=== PATIENT | male | born 1995 | race Caucasian/White ===

== ENCOUNTER 2023-12-12 08:10 | Outpatient (REF) | payer OTHER, SELFPAY ==
--- NOTE | ~2023-12-12 | US_ITS ---
EXAMINATION: US ABDOMEN COMPLETE CLINICAL INFORMATION: Elevated LFTs. COMPARISON: None available. TECHNIQUE: Real-time imaging of the abdominal viscera. Limited visualization due to bowel gas. FINDINGS: PANCREAS: Poorly visualized. ABDOMINAL AORTA: Limited visualization. Imaged portions are within normal limits in caliber. INFERIOR VENA CAVA: Visualized portions are normal. LIVER: Hepatomegaly, 17.2 cm. Increased hepatic parenchymal heterogeneity and echogenicity could be associated with hepatocellular disease/hepatic steatosis and substantially limits visualization. Hypoechoic areas within the right hepatic lobe adjacent to the gallbladder may represent areas of focal sparing within a fatty liver. Correlation with liver function tests and clinical exam recommended to determine further management. GALLBLADDER: No gallbladder wall thickening. No gallstones. COMMON BILE DUCT: Normal in caliber measuring 0.3 cm in diameter. RIGHT KIDNEY: No hydronephrosis. No renal calculi. Limited visualization. The kidney measures 11.0 cm in maximum dimension. LEFT KIDNEY: No hydronephrosis. No renal calculi. Limited visualization. The kidney measures 10.7 cm in maximum dimension. SPLEEN: Normal. The spleen measures 11.6 cm in maximum dimension. FREE FLUID: None. US/US abdomen complete IMPRESSION: Hepatomegaly, 17.2 cm. Increased hepatic parenchymal heterogeneity and echogenicity could be associated with hepatocellular disease/hepatic steatosis and substantially limits visualization. Hypoechoic areas within the right hepatic lobe adjacent to the gallbladder may represent areas of focal sparing within a fatty liver. Correlation with liver function tests and clinical exam recommended to determine further management. This study was presented today December 19, 2023 for interpretation. Stat results provided at this time as requested by referring provider.
== END 2023-12-12 08:11 | disposition home or self-care (01) ==
LOC: HO.US 08:10
PROVIDERS: Visit Provider Internal Medicine Gastroenterology
DX: R79.89 Other specified abnormal findings of blood chemistry (principal)
CPT/HCPCS: 76700

== ENCOUNTER 2023-12-17 09:14 | Outpatient (REF) | payer OTHER, SELFPAY ==
[2023-12-17 12:10] LABS: Alanine Aminotransferase 166 U/L (0-40); Albumin Level 4.8 g/dL (3.5-5.0); Alkaline Phosphatase 78 U/L (39-117); Aspartate Amino Transferase 53 U/L (5-37); Bilirubin Direct 0.1 mg/dL (0.0-0.5); Bilirubin Total 0.5 mg/dL (0.0-1.0); Iron 142 mcg/dL (45-160); Percent Iron Saturation 46 % (15-50); Total Iron Binding Capacity 306 mcg/dL (228-428); Total Protein 7.5 g/dL (6.5-8.0); Unsaturated Iron Binding 164 ug/dL
[2023-12-17 12:20] LABS: HBS Num1 0.32 mIU/mL (0-7.99); HBc Num1 0.23 S/CO (0.00-0.79); HBsAGNum1 0.47 S/CO (0.00-0.99); Hepatitis B Core Antibody Nonreactive (Nonreactive); Hepatitis B Surface Antigen Negative (Negative); ~HepC Num1 0.21 S/CO (0.00-0.79); ~Hepatitis A Antibody IgM Nonreactive (Nonreactive); ~Hepatitis B Surface Antibody NONREACTIVE (Nonreactive); ~Hepatitis C Antibody Nonreactive (Nonreactive)
[2023-12-17 12:25] LABS: Ferritin 737 ng/mL (20-250)
[2023-12-20 06:33] LABS: Anti Nuclear Antibody Screen NEGATIVE (NEGATIVE)
[2023-12-20 14:09] LABS: Mitochondrial Antibodies NEGATIVE (NEGATIVE)
[2023-12-23 09:13] LABS: Smooth Muscle Antibody <20 U (<20)
== END 2023-12-17 09:15 | disposition home or self-care (01) ==
LOC: HO.WFDLDS 09:14
PROVIDERS: Visit Provider Internal Medicine Gastroenterology
DX: R79.89 Other specified abnormal findings of blood chemistry (principal)
CPT/HCPCS: 36415; 80076; 82728; 83540; 86015; 86038; 86381; 86704; 86706; 86709; 86803; 87340

== ENCOUNTER 2024-01-09 08:31 | Outpatient (REF) | payer OTHER, SELFPAY ==
[2024-01-09 10:20] LABS: Prothrombin Time 12.7 SEC (11.1-13.3)
[2024-01-09 10:40] LABS: Alanine Aminotransferase 104 U/L (0-40); Albumin Level 4.6 g/dL (3.5-5.0); Alkaline Phosphatase 79 U/L (39-117); Aspartate Amino Transferase 41 U/L (5-37); Bilirubin Direct 0.1 mg/dL (0.0-0.5); Bilirubin Total 0.3 mg/dL (0.0-1.0); Iron 106 mcg/dL (45-160); Percent Iron Saturation 36 % (15-50); Total Iron Binding Capacity 296 mcg/dL (228-428); Total Protein 7.2 g/dL (6.5-8.0); Unsaturated Iron Binding 190 ug/dL
[2024-01-09 10:54] LABS: Ferritin 574 ng/mL (20-250)
[2024-01-09 14:28] LABS: Estimated Average Glucose 94 mg/dL; Hemoglobin A1c % 4.9 % (<6.0)
[2024-01-16 11:29] LABS: Ceruloplasmin 26
[2024-01-16 11:31] LABS: Liver Fibrosis Interpretation no fibrosis; Liver Fibrosis Score 0.16; Liver Fibrosis Stage F0
[2024-01-16 11:32] LABS: Nec Inflam Act Grade A1-A2; Nec Inflam Act Interpretation minimal activity; Nec Inflam Act Score 0.47
[2024-01-16 11:33] LABS: FIB-Alpha-2-Macroglobulin 177
[2024-01-16 11:34] LABS: FIB-Apolipoprotein A1 110; FIB-Haptoglobin 131; FIB-Total Bilirubin 0.3
[2024-01-16 11:35] LABS: FIB-GGT 69
== END 2024-01-09 08:32 | disposition home or self-care (01) ==
LOC: HO.WFDLDS 08:31
PROVIDERS: Visit Provider Internal Medicine Gastroenterology
DX: R94.5 Abnormal results of liver function studies (principal); E83.19 Other disorders of iron metabolism
CPT/HCPCS: 36415; 80076; 81256; 81596; 82103; 82390; 82728; 83036; 83519; 83540; 85610

== ENCOUNTER 2024-02-11 16:07 | Outpatient (AMB) | payer OTHER, SELFPAY ==
--- NOTE | 2024-02-11 16:11 | MHC.PC.OV ---
Vital Signs 02/11/24 16:12 Height 6 ft Weight 201 lb BMI 27.3 BP 122/86 Blood Pressure Location Lt brachial Position Sitting Pulse 76 Pulse Source Pulse Oximeter Pulse Oximetry (%) 98 Oxygen Delivery Method Room Air Intake Visit Reasons: establish care [employer] Driver Required: No Accompanied by: Self / Same As Patient Allergies No Known Allergies Allergy (Verified 02/11/24 16:39) Medication List - Last Reconciled 02/11/24 by Rc Harris MD fluticasone propionate 50 mcg/actuation (Flonase Allergy Relief) 1 spray intranasal Q12H 30 days loratadine 10 mg PO DAILY PRN 30 days pseudoephedrine HCl 60 mg (2 x 30 mg) PO Q6H PRN 3 days Tobacco use date assessed: 02/11/24 Dental Screening Dental Screen Date: 02/11/24 Did you have a dental visit in the last 12 months?: No Did you have a dental problem in the last 6 months where you did not have access to dental care?: No Was dental information given to patient?: Patient has dentist HPI establish care HPI Details Patient comes in today to establish care - is a new patient to the practice States that the last time he had a primary care doctor was when 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 Nava over the past few months for evaluation and management of his elevated LFTs, which was first discovered when he went to a local urgent care center in November (2023) States that he was not feeling too good at the time and was experiencing increased heartburns after attending a pool republican with friends and admitted that he drank more alcohol that time than he normally does (thinks that he had about 6 drinks with 4 to 5 shots of alcohol at the time) His mother was then able to get him an appointment with Dr. Nava for GI consultation regarding his elevated liver enzymes He has since then been sent for extensive labs, including serologies and work ups for hemochromatosis, as well as abdominal ultrasound His abdominal sonogram revealed (+) hepatomegaly, with the liver measuring at 17.2 cm. There is also increased hepatic parenchymal heterogeneity and echogenicity noted consistent with hepatic steatosis or hepatocellular disease His hepatitis profile came back negative and his hemochromatosis DNA analysis revealed that patient is heterozygous for the C282Y and H63D pathogenic variant, which means that he has a very low risk of developing clinical hereditary hemochromatosis Patient states that overall, he feels well and has no significant medical or health issues He denies any headaches or dizziness Denies any chest pains, no SOB No nausea/vomiting, no abdominal pain No change in bowel habits noted He denies any acute urinary symptoms PFSH Medical History (Updated 02/12/24 @ 05:42 by Rc Harris MD) Occasional cigarette smoker Overweight (BMI 25.0-29.9) Compound heterozygous hemochromatosis type 1 Elevated LFTs Surgical History (Updated 02/12/24 @ 05:17 by Rc Harris MD) No pertinent past surgical history Family History Mother No problems noted. Father No problems noted. Social History Housing: House Alcohol intake: current Alcohol intake frequency: 0-2 drinks per day Patient Tobacco Use Status: Current someday Tobacco user e-Cigarette/Vaping Use: Never Used service: No Current occupational status: employed Current occupational exposures/hazards: Yes Cognitive needs: No Hearing needs: No Vision needs: No Questionnaire PHQ-9 Over the last 2 weeks, how often have you been bothered by any of the following problems? 1. Little interest or pleasure in doing things: not at all 2. Feeling down, depressed, or hopeless: not at all 3. Trouble falling or staying asleep, or sleeping too much: not at all 4. Feeling tired or having little energy: not at all 5. Poor appetite or overeating: not at all 6. Feeling bad about yourself - or that you are a failure or have let yourself or your family down: not at all 7. Trouble concentrating on things, such as reading the newspaper or watching television: not at all 8. Moving or speaking so slowly that other people could have noticed. Or the opposite - being so fidgety or restless that you have been moving around a lot more than usual: not at all 9. Thoughts that you would be better off or of hurting yourself in some way: not at all Total score: 0 Depression Screening Interpretation: Negative Depression Screening Done: Yes 61016 - PHQ-9 Billing: Yes Source: Developed by Drs. Maximo Sousa, Enedelia Mathias, Prince Gutierrez and colleagues, with an educational vanesa from [employer]. Thrive Questionnaire Date Thrive assessed: 02/11/24 I am a: Patient What is your living situation today?: I have a steady place to live Within the past 12 months, did the food you bought not last and you didn't have the money to get more?: Never true Within the past 12 months, did you worry whether your food would run out before you got money to buy more?: Never true Do you have trouble paying for medicines?: No Do you have trouble getting transportation to medical appointments?: No Do you have trouble paying your heating and electricity bill?: No Do you have trouble taking care of your child, family member or friend?: No Do you have trouble with day-to-day activities such as bathing, preparing meals, shopping, managing finances, etc.?: No Are you currently unemployed and looking for a job?: No Are you interested in more education?: No Please select the resources that you would like help with: None Currently or been in a relationship where the following occur: No concerns reported THRIVE Score: 0 AUDIT C Alcohol Use Questionnaire (AUDIT-C) 1. How often do you have a drink containing alcohol?: 2-4 times a month 2. How many drinks containing alcohol do you have on a typical day when you are drinking?: 3 or 4 3. How often do you have six or more drinks on one occasion?: Less than monthly Total Score: 4 Score Reviewed/Action Taken: Yes (patient has been counseled to cut back on his alcohol intake overall) MARNIE-7 AMB Questionnaire MARNIE-7 Date MARNIE - 7 assessed: 02/11/24 Feeling nervous, anxious, or on edge: 0 = Not at all Not being able to stop or control worryin = Not at all Worrying too much about different things: 0 = Not at all Trouble relaxin = Not at all Being so restless that it is hard to sit still: 0 = Not at all Becoming easily annoyed or irritable: 0 = Not at all Feeling afraid as if something awful might happen: 0 = Not at all Total MARNIE-7 score (0-4 normal; 5-9 mild; 10-14 moderate; 15-21 severe): 0 Source: Developed by Drs. Maximo Sousa, Enedelia Mathias, Prince Gutierrez and colleagues, with an educational vanesa from [employer]. Review of Systems Const Denies chills, Denies fatigue, Denies fever(s), Denies headache(s), Denies malaise and Denies weakness Eyes Denies blurry vision, Denies change in vision, Denies irritation and Denies itchy eyes ENT Denies dysphagia, Denies dizziness, Denies otalgia, Denies headache(s), Denies nasal congestion, Denies neck pain, Denies odynophagia and Denies sore throat Card Denies chest pain, Denies rapid heart rate, Denies irregular heart rhythm, Denies palpitations and Denies dyspnea Resp Denies chest congestion, Denies cough, Denies dyspnea and Denies wheezing GI Denies abdominal pain, Denies bloating, Denies constipation, Denies dysphagia, Denies heartburn, Denies diarrhea, Denies nausea, Denies odynophagia and Denies vomiting Denies hematuria, Denies difficulty urinating, Denies dysuria, Denies urinary frequency and Denies urinary urgency Musc Denies back pain, Denies arthralgias, Denies joint swelling, Denies muscle weakness and Denies neck pain Skin/Breast Denies change in pigmentation, Denies lesions, Denies rash and Denies unusual bruising Neuro Denies dizziness, Denies headache(s), Denies paresthesias and Denies weakness Endo Denies fatigue and Denies palpitations Aller/Immun Denies itchy eyes and Denies wheezing Physical exam (Primary Care) Vital Signs: Last Vital Signs Pulse 76 02/11/24 16:12 BP 122/86 02/11/24 16:12 Pulse Ox 98 02/11/24 16:12 Oxygen Delivery Method Room Air 02/11/24 16:12 BMI result Body Mass Index 27.3 Tobacco/Smoking Status: Tobacco use Status Tobacco use date assessed 02/11/24 02/11/24 16:14 Patient Tobacco Use Status Current someday Tobacco 02/11/24 16:14 e-Cigarette/Vaping Use Never Used 02/11/24 16:14 PHQ-9: PHQ-9 Score PHQ-9: Total score 0 02/11/24 16:54 Depression Screening Interpretation: Negative Thrive Assessment: Date of Thrive Assessment Date Thrive assessed 02/11/24 02/11/24 16:14 Currently or been in a relationship where the following occur: No concerns reported Const General: no acute distress, alert and awake Orientation/consciousness: patient oriented x3 HENMT Head: Yes normocephalic and Yes atraumatic Ears: external ears normal, TM's normal bilaterally and EAC's normal General nose exam: No nasal discharge present Face and sinus: Yes normal facial exam and Yes sinuses nontender Teeth and gingiva: dentition normal Throat: Yes posterior oropharynx normal and Yes tonsils normal (no TP congestion) Eyes Eyelids: Yes eyelids normal Conjunctivae: conjunctivae normal Pupils: Equal, round and reactive pupils present EOM: EOMs intact bilaterally Neck Neck: Yes no lymphadenopathy and Yes supple Thyroid: Thyroid normal Resp Auscultation: clear to auscultation bilaterally, no rales and no wheezes Cardio Rate: regular rate Rhythm: regular rhythm Heart sounds: no murmurs GI Palpation (GI): Soft to palpation, nontender and No hepatosplenomegaly present Auscultation: normal bowel sounds General: Yes no CVA tenderness Back/Spine/Pelvis Back: no CVA tenderness Thoracic/Lumbar Spine: thoracic and lumbar spine normal to inspection Skin Lesions: no lesions Rashes: no rashes Neuro General: patient oriented x3, moves all extremities, no focal motor deficits and CN's II-XI intact bilaterally Cranial nerves: Yes Equal, round and reactive pupils present Cognition (Neuro): normal cognition Gait exam (Neuro): Normal gait present Extrem General: Yes no clubbing, cyanosis or edema Assessment and Plan Assessment & Plan (1) Annual physical exam: Code(s): Z00.00 - Encounter for general adult medical examination without abnormal findings Plan: Check labs (2) Elevated LFTs: Code(s): R79.89 - Other specified abnormal findings of blood chemistry Plan: Patient is advised that this is likely due to a combination of multiple factors, including his weight and alcohol intake He has been advised to cut back on his overall alcohol intake and to avoid taking OTC Tylenol as much as possible Advised that losing some weight can also help and that at his height, losing 10 to 15 pounds should get him down to his ideal body weight His hepatitis panel done a couple of months ago came back negative Hepatomegaly was seen on his abdominal sonogram done in November 2023, with the liver measuring at 17.2 cm. There is also increased hepatic parenchymal heterogeneity and echogenicity noted consistent with hepatic steatosis or hepatocellular disease His hemochromatosis DNA analysis revealed that patient is heterozygous for the C282Y and H63D pathogenic variant, and his serum ferritin level was elevated at the time Will continue to monitor his LFTs and serum ferritin levels regularly (3) Compound heterozygous hemochromatosis type 1: Code(s): E83.110 - Hereditary hemochromatosis Plan: There is a common misconception that people who are compound heterozygous are just carriers A carrier is when an individual has inherited one single copy of the HFE mutation. If the result shows that the individual has inherited 2 different copies, then that person is not a carrier but has got type 1 genetic hemochromatosis. In this case, this individual is compound heterozygous Have advised patient that people with compound heterozygous hemochromatosis type 1, while they have a very low risk of developing clinical hereditary hemochromatosis, may still experience symptoms of iron overload, such as:?obesity, non-alcoholic fatty liver disease (NAFLD), excess alcohol consumption and end-stage cirrhosis However, people with this condition tend to accumulate iron more slowly than people with other types of genetic hemochromatosis Have advised patient that his first-degree relatives should also be tested and family screening should include parents, siblings, partner and children 18 years and older. All children will be carriers but are only at risk if their other parent is also affected or a carrier (4) Occasional cigarette smoker: Code(s): Z72.0 - Tobacco use Plan: Counseled patient on complete smoking cessation (5) Overweight (BMI 25.0-29.9): Code(s): E66.3 - Overweight Plan: Reinforced diet/exercise as tolerated/lose weight, especially in light of his elevated LFTs Plan Follow up in 6 months Orders: Orders Complete Blood Count Auto Diff 02/11/24 D64.9 - Anemia, unspecified, R79.89 - Other specified abnormal findings of blood chemistry Comprehensive [place]. Panel Fast 02/11/24 E78.00 - Pure hypercholesterolemia, unspecified, R79.89 - Other specified abnormal findings of blood chemistry Lipid Panel 02/11/24 E78.00 - Pure hypercholesterolemia, unspecified, R79.89 - Other specified abnormal findings of blood chemistry UA CC w/rflx Micro + Cult 02/11/24 R30.0 - Dysuria, R79.89 - Other specified abnormal findings of blood chemistry Vitamin D 25-OH Total 02/11/24 E55.9 - Vitamin D deficiency, unspecified, R79.89 - Other specified abnormal findings of blood chemistry Transferrin 02/11/24 E83.110 - Hereditary hemochromatosis TSH reflex Free T4 02/11/24 E78.00 - Pure hypercholesterolemia, unspecified, R79.89 - Other specified abnormal findings of blood chemistry Coding Level of Care Code New Pt Prev Care 18-39yr([id number] Diagnoses Annual physical exam Z00.00 Elevated LFTs R79.89 Compound heterozygous hemochromatosis type 1 E83.110 Occasional cigarette smoker Z72.0 Overweight (BMI 25.0-29.9) E66.3
[2024-02-11 16:12] VITALS: BP 122/86; PULSE 76; O2SAT 98; BMI 27.3
== END 2024-02-11 17:09 | disposition home or self-care (01) ==
PROVIDERS: Visit Provider Internal Medicine
DX: Z00.00 Encounter for general adult medical examination without abnormal findings (principal); R79.89 Other specified abnormal findings of blood chemistry; E83.110 Hereditary hemochromatosis; Z72.0 Tobacco use; E66.3 Overweight

== ENCOUNTER → 2024-02-11 16:07 | Outpatient (BNVA) | payer OTHER, SELFPAY | PROVIDERS: Visit Provider Internal Medicine | DX: Z00.00 Encounter for general adult medical examination without abnormal findings (principal); R79.89 Other specified abnormal findings of blood chemistry; E83.110 Hereditary hemochromatosis; E66.3 Overweight; Z68.27 Body mass index [BMI] 27.0-27.9, adult; Z72.0 Tobacco use | CPT/HCPCS: 96127 ==

== ENCOUNTER 2024-02-13 09:02 | Outpatient (REF) | payer OTHER, SELFPAY ==
[2024-02-13 11:12] LABS: MANUAL DIFF FLAG NO
[2024-02-13 11:19] LABS: Appearance Urine Clear; Color Urine Yellow; Glucose Urine UA Negative (Negative); Leukocyte Esterase Urine Negative (Negative); Nitrite Urine Negative (Negative); Urine Blood Negative (Negative); Urine Ketones Negative (Negative); Urine Protein Negative (Neg-Trace)
[2024-02-13 11:23] LABS: Basophils Percent Auto 0.7 % (0-2); Eosinophils Absolute Auto 0.1 X10*3/uL (0.0-0.4); Eosinophils Percent Auto 1.4 % (0-4); Hematocrit 46.5 % (42.0-52.0); Hemoglobin 15.2 g/dl (14.0-18.0); Imm Gran Abs Auto 0.02 X10*3/uL (0.00-0.03); Imm Gran Pct Auto 0.5 % (0.0-0.4); Lymphocytes Absolute Auto 1.5 X10*3/uL (1.2-4.9); Lymphocytes Percent Auto 34.3 % (20-40); Mean Corpuscular HGB Conc 32.7 g/dl (31.0-36.0); Mean Corpuscular Volume 82.6 fL (80.0-98.0); Mean Platelet Volume 10.4 fL (9.4-12.4); Monocytes Absolute Auto 0.4 X10*3/uL (0.1-1.2); Monocytes Percent Auto 9.7 % (2-11); Neutrophils Absolute Auto 2.3 x10*3/uL (2.0-8.3); Neutrophils Percent Auto 53.4 % (45-73); Platelet Count 296 X10*3/uL (160-400); Red Blood Count 5.63 X10*6/uL (4.60-5.80); Red Cell Distribution Width 12.5 % (11.0-16.0); White Blood Count 4.4 X10*3/uL (4.8-10.8)
[2024-02-13 12:03] LABS: Alanine Aminotransferase 90 U/L (0-40); Albumin Level 4.8 g/dL (3.5-5.0); Alkaline Phosphatase 62 U/L (39-117); Aspartate Amino Transferase 31 U/L (5-37); Bilirubin Direct 0.1 mg/dL (0.0-0.5); Bilirubin Total 0.5 mg/dL (0.0-1.0); Total Protein 7.5 g/dL (6.5-8.0)
[2024-02-13 12:14] LABS: Alanine Aminotransferase 92 U/L (0-40); Albumin Level 4.8 g/dL (3.5-5.0); Alkaline Phosphatase 63 U/L (39-117); Anion Gap 12 (12-20); Aspartate Amino Transferase 32 U/L (5-37); Bilirubin Total 0.5 mg/dL (0.0-1.0); Blood Urea Nitrogen 18 mg/dL (9-16); Calcium 9.8 mg/dL (8.4-10.2); Carbon Dioxide 27 mmol/L (22-29); Chloride 106 mmol/L (96-108); Cholesterol 233 mg/dL (<200); Estimated Glomerular Filt Rate > 60; Glucose Fasting 96 mg/dL (60-99); HDL Cholesterol 32 mg/dL (>40); LDL Cholesterol Calculated 180 mg/dL (<100); Potassium 4.4 mmol/L (3.3-5.1); Sodium 141 mmol/L (135-145); TSH reflex Free T4 0.83 uIU/mL (0.32-4.0); Total Protein 7.6 g/dL (6.5-8.0); Triglycerides 108 mg/dL (<150); Vitamin D 25-OH Total 54.7 ng/mL (>30)
[2024-02-14 09:43] LABS: Transferrin 288 mg/dL (188-341)
== END 2024-02-13 09:03 | disposition home or self-care (01) ==
LOC: HO.WFDLDS 09:02
PROVIDERS: Internal Medicine Gastroenterology; Visit Provider Internal Medicine
DX: R79.89 Other specified abnormal findings of blood chemistry (principal); E83.110 Hereditary hemochromatosis; D64.9 Anemia, unspecified; E78.00 Pure hypercholesterolemia, unspecified; R30.0 Dysuria
CPT/HCPCS: 36415; 80053; 80061; 80076; 81003; 82248; 82306; 84443; 84466; 85025

== ENCOUNTER 2024-04-09 09:02 | Outpatient (AMB) | payer OTHER, SELFPAY ==
--- NOTE | 2024-04-09 09:25 | AM.OFFWIN_ITS ---
Intake Vital Signs 04/09/24 09:33 Height 6 ft Weight 197 lb BMI 26.7 BP 120/60 Blood Pressure Location Lt brachial Position Sitting Respiration 16 Pulse 72 Pulse Source Pulse Oximeter Temp 98.2 F Temp Source Temporal Artery Scan Pulse Oximetry (%) 95 Oxygen Delivery Method Room Air Intake Visit Reasons: est/sore throat Intake Note: patient here c/o sore throat since Sunday and very painful to swallow Patient Tobacco Use Status: Current someday Tobacco user Allergies No Known Allergies Allergy (Verified 04/09/24 09:47) Medication List - Last Reconciled 04/09/24 by CHAY Vincent No Known Home Meds Do you need a note to return to daycare/school/sports/work: Yes HPI HPI Comments History of Present Illness Details History of Present Illness The patient is a 29-year-old male presenting with acute pharyngitis. The patient reports that the sore throat began gradually on Sunday and progressively worsened, becoming intensely painful during swallowing. He denies fever, chills, nausea, or vomiting, and maintains an appetite, although eating is difficult due to pain. Self-treatment efforts included DayQuil with honey and [id number] lozenges, which provided minimal relief. The patient noted a slight tinge of blood in the morning, possibly due to throat irritation. He reports history of cold sores since childhood and recently noticed a small ulcer under his tongue. The patient has a new girlfriend of four months but denies known herpes exposure. There is a history of occasional cigar smoking prior to a liver issue in November, after which he quit smoking. He admits to limited chewing tobacco use. The patient is particularly concerned about the sore throat due to the use of chewing tobacco and potential oral health risks. Physical Exam - Ears- Clear bilaterally. - ENT- Throat showed redness and cobbles toning, presence of vesicle underneath the tongue. - Cardiovascular- Normal heart sounds. - Lungs- Clear on auscultation. - Abdomen- No tenderness noted. Plan - Acute Pharyngitis: Prescribed Augmenti n for a 7-day course, advising the patient to take one tablet twice daily with food. The patient is advised to contact Dr. Harris if there is no improvement after five days. - Aphthous Ulcer: Reassurance provided. Recommended continuation of current symptomatic relief measures with the addition of ibuprofen, 800 mg, three times a day with food for pain management. - History of Herpes Labialis: Discussed that sore throats can be associated with herpes virus, but confirmatory testing has not been initiated. Advised to m onitor symptoms. - History of Chewing Tobacco Use: Discus sed risks associated, including potential oral cancer. Advised to abstain from tobacco use and to seek further evaluation with Dr. Harris if symptoms persist or worsen. Patient was informed and verbally consented to the use of an ambient scribe for clinic note documentation during this visit. Total time spent caring for the patient today was 30 minutes. This includes time spent before the visit reviewing the chart, time spent during the visit, and time spent after the visit on documentation [facility] Medical History (Updated 04/09/24 @ 12:07 by Conchita Mitchell, [facility]) Occasional cigarette smoker Overweight (BMI 25.0-29.9) Compound heterozygous hemochromatosis type 1 Elevated LFTs Surgical History (Updated 02/12/24 @ 05:17 by Rc Harris MD) No pertinent past surgical history Family History Mother No problems noted. Father No problems noted. Social History Housing: House Alcohol intake: current Alcohol intake frequency: 0-2 drinks per day Patient Tobacco Use Status: Current someday Tobacco user e-Cigarette/Vaping Use: Never Used service: No Current occupational status: employed Current occupational exposures/hazards: Yes Cognitive needs: No Hearing needs: No Vision needs: No Physical Exam Vital Signs: Last Vital Signs Temp 98.2 F 04/09/24 09:33 Pulse 72 04/09/24 09:33 Resp 16 04/09/24 09:33 BP 120/60 04/09/24 09:33 Pulse Ox 95 04/09/24 09:33 Oxygen Delivery Method Room Air 04/09/24 09:33 BMI result Body Mass Index 26.7 Results AMB Rapid Strep AMB Rapid Strep Negative Last Edit by Ana Serrato on 04/09/24 09:51 Results Reviewed Results Reviewed: Laboratory Last Values Strep Scn Rapid Clinic Negative 04/09/24 09:48 Assessment & Plan Assessment & Plan (1) Acute pharyngitis: Code(s): J02.9 - Acute pharyngitis, unspecified Qualifiers: Pharyngitis/tonsillitis etiology: unspecified etiology Qualified Code(s): J02.9 - Acute pharyngitis, unspecified (2) Herpes: Code(s): B00.9 - Herpesviral infection, unspecified (3) Chewing tobacco dependence: Code(s): F17.220 - Nicotine dependence, chewing tobacco, uncomplicated Plan . Orders: Orders AMB Rapid Strep Screen Today Z13.9 - Encounter for screening, unspecified Medications: New amoxicillin-pot clavulanate 875-125 mg 1 tab PO BID 14 tabs 0RF 7 days Coding Level of Care Code Est Pt Level 4 (06210) Diagnoses Acute pharyngitis, unspecified etiology J02.9 Pharyngitis/tonsillitis etiology: unspecified etiology Herpes B00.9 Chewing tobacco dependence F17.220
[2024-04-09 09:33] VITALS: BP 120/60; PULSE 72; RESP 16; TEMP 36.8; O2SAT 95; BMI 26.7
== END 2024-04-09 10:00 | disposition home or self-care (01) ==
LOC: HO.HMCWIW 09:02
PROVIDERS: PCP Internal Medicine; Visit Provider Nurse Practitioner Family
DX: J02.9 Acute pharyngitis, unspecified (principal); B00.9 Herpesviral infection, unspecified; F17.220 Nicotine dependence, chewing tobacco, uncomplicated; Z13.9 Encounter for screening, unspecified

== ENCOUNTER → 2024-04-09 09:02 | Outpatient (BNVA) | payer OTHER, SELFPAY | PROVIDERS: PCP Internal Medicine; Visit Provider Nurse Practitioner Family | DX: J02.9 Acute pharyngitis, unspecified (principal); B00.9 Herpesviral infection, unspecified; F17.220 Nicotine dependence, chewing tobacco, uncomplicated | CPT/HCPCS: 87880 ==

== ENCOUNTER 2024-04-14 14:00 | Outpatient (AMB) | payer OTHER, SELFPAY ==
--- NOTE | 2024-04-14 15:08 | AM.OFFWIN_ITS ---
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 Patient Tobacco Use Status: Current someday Tobacco user Allergies No Known Allergies Allergy (Verified 04/09/24 09:47) HPI HPI Comments History of Present Illness Details History of Present Illness The patient is a 29-year-old male presenting with persistent throat symptoms. Initially evaluated on April 09 at the [facility] in [place] and diagnosed with acute pharyngitis. A rapid strep test was performed, returning negative; however, Augmentin was prescribed for suspected bacterial pharyngitis. The patient reports adherence to the prescribed antibiotic regimen, which he is set to complete tomorrow. Initial symptoms included significant throat pain, particularly severe in the mornings, impeding oral intake and described as an inability to eat at times. In addition to Augmentin, the patient was advised to use ibuprofen to manage pain and a nasal decongestant for potential postnasal d rip. Symptom severity has decreased but not resolved entirely. Examination of throat revealed a lesion on the posterior pharyngeal wall described as non- vesicular, and opposite to typical herpetic lesions the patient has self- reportedly experienced on the lips. The lesion onset was noted after three days of antibiotic therapy, raising concern for an alternate etiology. Lifestyle factors include using humidifiers to alleviate symptoms. The patient has a limited sexual contact history, which led to mention of herpes screening by the prior provider, causing considerable anxiety. Throughout, the condition has progressed without substantial systemic symptoms noted, and despite partial symptomatic improvement, concern remains due to the persistent throat lesion. [facility] Medical History (Updated 04/09/24 @ 12:07 [facility] Occasional cigarette smoker Overweight (BMI 25.0-29.9) Compound heterozygous hemochromatosis type 1 Elevated LFTs Surgical History (Updated 02/12/24 @ 05:17 by Rc Harris MD) No pertinent past surgical history Family History Mother No problems noted. Father No problems noted. Social History Housing: House Alcohol intake: current Alcohol intake frequency: 0-2 drinks per day Patient Tobacco Use Status: Current someday Tobacco user e-Cigarette/Vaping Use: Never Used service: No Current occupational status: employed Current occupational exposures/hazards: Yes Cognitive needs: No Hearing needs: No Vision needs: No Review of Systems Const All systems reviewed & are unremarkable except as noted in HPI and below Physical Exam Vital Signs: Last Vital Signs Temp 98.6 F 04/14/24 15:10 Pulse 74 04/14/24 15:10 BP 132/80 04/14/24 15:10 Pulse Ox 98 04/14/24 15:10 Oxygen Delivery Method Room Air 04/14/24 15:10 Const General: cooperative, healthy appearing, comfortable, no acute distress and well developed Orientation/consciousness: patient oriented x3 Limitations: no limitations HEENT Head: Yes normal to inspection Ears: hearing grossly normal bilaterally General nose exam: Normal external nose present Face and sinus: Yes normal facial exam Throat: Yes posterior oropharynx abnormal (non-vesicular lesion on the posterior pharyngeal wall, consistent w/ulcer) and Yes other (erythema) Eyes General: appearance normal, both eyes and all related structures Neck Neck: Yes normal visual inspection and Yes full ROM Resp Effort & Inspection: normal respiratory effort and able to speak in complete sentences Skin General skin exam: no rashes or lesions noted Neuro General: patient oriented x3 Extrem General: Yes normal to inspection Assessment & Plan Assessment & Plan (1) Acute pharyngitis: Code(s): J02.9 - Acute pharyngitis, unspecified Qualifiers: Pharyngitis/tonsillitis etiology: unspecified etiology Qualified Code(s): J02.9 - Acute pharyngitis, unspecified Plan: - Continue the full prescribed course of Augmentin, due to complete tomorrow, to ensure resolution of any bacterial infection. - Given the diminishing symptoms, monitor for further improvement post- antibiotic completion as antibiotics can continue to work in the system a few days after the medication course finishes. - For the persistent throat lesion, consider possible viral pharyngitis or other benign conditions as primary etiologies; continue symptomatic relief with ibuprofen and consider saline gargles for soothing effect. - Based on current assessment, the appearance of the throat lesion is not consistent with herpes simplex infection. No further diagnostic testing for herpes is indicated unless further concerning symptoms or vesicular changes appear. - Recommendation for follow-up consultation with an paint striping machine operator if symptoms persist or worsen, particularly if lesions become vesicular or other systemic symptoms develop, remains important. - Patient education provided about the viral versus bacterial etiology of pharyngitis and reassurance given regarding unlikely transmission of herpes b ased on current findings. Encourage continued symptomatic management and observation over the next several days. Patient was informed and verbally consented to the use of an ambient scribe for clinic note documentation during this visit. Coding Level of Care Code Est Pt Level 3 (73497) Diagnoses Acute pharyngitis, unspecified etiology J02.9 Pharyngitis/tonsillitis etiology: unspecified etiology
[2024-04-14 15:10] VITALS: BP 132/80; PULSE 74; TEMP 37; O2SAT 98
== END 2024-04-14 15:40 | disposition home or self-care (01) ==
PROVIDERS: PCP Internal Medicine; Visit Provider Physician Assistant
DX: J02.9 Acute pharyngitis, unspecified (principal)

== ENCOUNTER → 2024-04-14 14:00 | Outpatient (BNVA) | payer OTHER, SELFPAY | PROVIDERS: PCP Internal Medicine; Visit Provider Physician Assistant ==

== ENCOUNTER 2024-08-13 16:11 | Outpatient (AMB) | payer OTHER, SELFPAY ==
--- NOTE | 2024-08-13 16:12 | A.OFFPC_ITS ---
Vital Signs 08/13/24 16:13 Height 6 ft Weight 197 lb 8 oz BMI 26.8 BP 132/80 Blood Pressure Location Lt brachial Position Sitting Pulse 79 Pulse Source Pulse Oximeter Pulse Oximetry (%) 97 Oxygen Delivery Method Room Air Intake Visit Reasons: elevated LFTs Technical Support Representative Required: No Accompanied by: Self / Same As Patient Allergies No Known Allergies Allergy (Verified 08/13/24 16:51) Medication List - Last Reconciled 08/13/24 by Rc Harris MD Tobacco use date assessed: 08/13/24 Dental Screening Dental Screen Date: 08/13/24 Did you have a dental visit in the last 12 months?: Yes Did you have a dental problem in the last 6 months where you did not have access to dental care?: No Was dental information given to patient?: Patient has dentist HPI elevated LFTs HPI Details Patient comes in today for his follow up visit States that he feels okay States that he has lost some weight initially but seems to have gained them back when he started working out regularly at the gym a few weeks ago He denies any headaches or dizziness Denies any chest pains, no shortness of breath No nausea/vomiting, no abdominal pain No change in bowel habits noted States that he will be seeing Dr. Nava for follow-up in a couple weeks and would like to know if he can get his follow-up labs done together with whatever labs Dr. Nava will need him to do [facility] Medical History Occasional cigarette smoker Overweight (BMI 25.0-29.9) Compound heterozygous hemochromatosis type 1 Elevated LFTs Surgical History No pertinent past surgical history Family History Mother No problems noted. Father No problems noted. Social History Housing: House Alcohol intake: current Alcohol intake frequency: 0-2 drinks per day Patient Tobacco Use Status: Current someday Tobacco user e-Cigarette/Vaping Use: Never Used service: No Current occupational status: employed Current occupational exposures/hazards: Yes Cognitive needs: No Hearing needs: No Vision needs: No Questionnaire PHQ-9 Over the last 2 weeks, how often have you been bothered by any of the following problems? 1. Little interest or pleasure in doing things: not at all 2. Feeling down, depressed, or hopeless: not at all 3. Trouble falling or staying asleep, or sleeping too much: not at all 4. Feeling tired or having little energy: not at all 5. Poor appetite or overeating: not at all 6. Feeling bad about yourself - or that you are a failure or have let yourself or your family down: not at all 7. Trouble concentrating on things, such as reading the newspaper or watching television: not at all 8. Moving or speaking so slowly that other people could have noticed. Or the opposite - being so fidgety or restless that you have been moving around a lot more than usual: not at all 9. Thoughts that you would be better off or of hurting yourself in some way: not at all Total score: 0 Depression Screening Interpretation: Negative Depression Screening Done: Yes 13053 - PHQ-9 Billing: Yes Source: Developed by Drs. Maximo Sousa, Enedelia Mathias, Prince Gutierrez and colleagues, with an educational vanesa from [employer]. Thrive Questionnaire Date Thrive assessed: 08/13/24 I am a: Patient What is your living situation today?: I have a steady place to live Within the past 12 months, did the food you bought not last and you didn't have the money to get more?: Never true Within the past 12 months, did you worry whether your food would run out before you got money to buy more?: Never true Do you have trouble paying for medicines?: No Do you have trouble getting transportation to medical appointments?: No Do you have trouble paying your heating and electricity bill?: No Do you have trouble taking care of your child, family member or friend?: No Do you have trouble with day-to-day activities such as bathing, preparing meals, shopping, managing finances, etc.?: No Are you currently unemployed and looking for a job?: No Are you interested in more education?: No Please select the resources that you would like help with: None Currently or been in a relationship where the following occur: No concerns reported THRIVE Score: 0 AUDIT C Alcohol Use Questionnaire (AUDIT-C) 1. How often do you have a drink containing alcohol?: 2-4 times a month 2. How many drinks containing alcohol do you have on a typical day when you are drinking?: 3 or 4 3. How often do you have six or more drinks on one occasion?: Less than monthly Total Score: 4 Score Reviewed/Action Taken: Yes (patient has been counseled again to cut back on his alcohol intake overall) MARNIE-7 AMB Questionnaire MARNIE-7 Date MARNIE - 7 assessed: 08/13/24 Feeling nervous, anxious, or on edge: 0 = Not at all Not being able to stop or control worryin = Not at all Worrying too much about different things: 0 = Not at all Trouble relaxin = Not at all Being so restless that it is hard to sit still: 0 = Not at all Becoming easily annoyed or irritable: 0 = Not at all Feeling afraid as if something awful might happen: 0 = Not at all Total MARNIE-7 score (0-4 normal; 5-9 mild; 10-14 moderate; 15-21 severe): 0 Source: Developed by Drs. Maximo Sousa, Enedelia Mathias, Prince Gutierrez and colleagues, with an educational vanesa from [employer]. Review of Systems Const Denies chills, Denies fatigue, Denies fever(s) and Denies headache(s) ENT Denies dysphagia, Denies dizziness, Denies otalgia, Denies headache(s), Denies neck pain, Denies odynophagia and Denies sore throat Card Denies chest pain, Denies irregular heart rhythm, Denies palpitations and Denies dyspnea Resp Denies chest congestion, Denies cough and Denies dyspnea GI Denies abdominal pain, Denies constipation, Denies dysphagia, Denies heartburn, Denies diarrhea, Denies nausea, Denies odynophagia and Denies vomiting Denies difficulty urinating, Denies dysuria and Denies urinary frequency Musc Denies back pain, Denies arthralgias and Denies neck pain Skin/Breast Denies rash Neuro Denies dizziness, Denies headache(s) and Denies paresthesias Endo Denies fatigue and Denies palpitations Physical exam (Primary Care) Vital Signs: Last Vital Signs Pulse 79 08/13/24 16:13 BP 132/80 08/13/24 16:13 Pulse Ox 97 08/13/24 16:13 Oxygen Delivery Method Room Air 08/13/24 16:13 BMI result Body Mass Index 26.8 Tobacco/Smoking Status: Tobacco use Status Tobacco use date assessed 08/13/24 08/13/24 16:15 Patient Tobacco Use Status Current someday Tobacco 08/13/24 16:15 e-Cigarette/Vaping Use Never Used 08/13/24 16:15 PHQ-9: PHQ-9 Score PHQ-9: Total score 0 08/13/24 16:53 Depression Screening Interpretation: Negative Thrive Assessment: Date of Thrive Assessment Date Thrive assessed 08/13/24 08/13/24 16:15 Currently or been in a relationship where the following occur: No concerns reported Const General: no acute distress and alert HENMT Ears: TM's normal bilaterally and EAC's normal Throat: Yes posterior oropharynx normal and Yes tonsils normal (no TP congestion) Neck Neck: Yes no lymphadenopathy and Yes supple Thyroid: Thyroid normal Resp Auscultation: clear to auscultation bilaterally, no rales and no wheezes Cardio Rate: regular rate Rhythm: regular rhythm Heart sounds: no murmurs GI Palpation (GI): Soft to palpation and nontender Auscultation: normal bowel sounds General: Yes no CVA tenderness Back/Spine/Pelvis Back: no CVA tenderness Thoracic/Lumbar Spine: thoracic and lumbar spine normal to inspection Skin Rashes: no rashes Extrem General: Yes no clubbing, cyanosis or edema Coding Level of Care Code Est Pt Level 4 (98649) Diagnoses Elevated LFTs R79.89 Compound heterozygous hemochromatosis type 1 E83.110 Occasional cigarette smoker Z72.0 Overweight (BMI 25.0-29.9) E66.3 Additional Codes PHQ-9 - 91625 - PHQ-9 Billing: Yes ([id number]) Assessment & Plan Assessment & Plan (1) Elevated LFTs: Code(s): R79.89 - Other specified abnormal findings of blood chemistry Category: Medical Plan: Patient has been advised that this is likely due to a combination of his weight and alcohol intake Hepatomegaly was seen on his abdominal sonogram done in November 2023, with the liver measuring at 17.2 cm. 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, and his serum ferritin level was elevated at the time Will continue to monitor his LFTs and serum ferritin levels regularly (2) Compound heterozygous hemochromatosis type 1: Code(s): E83.110 - Hereditary hemochromatosis Category: Medical Plan: Patient is a compound heterozygote for type 1 genetic hemochromatosis and is NOT a carrier, which is a common misconception He has been advised that while he has a very low risk of developing clinical hereditary hemochromatosis, he may still experience symptoms of iron overload, such as fatigue, joint pains, skin changes (bronzing), abdominal pain and organ damage, especially involving the liver, heart and pancreas BUT people with this condition tend to accumulate iron more slowly than those with other types of genetic hemochromatosis Other factors like obesity, non-alcoholic fatty liver disease (NAFLD), excess alcohol consumption and end-stage cirrhosis can also be associated with this and can exacerbate his condition Patient has been advised that his first-degree relatives should also be tested and family screening should include parents, siblings, partner and children 18 years and older. All children will be carriers but are only at risk if their other parent is also affected or a carrier Will now send him for some repeat labs for follow up Follow up with GI (Dr. Nava) as scheduled (3) Occasional cigarette smoker: Code(s): Z72.0 - Tobacco use Category: Social Hx Plan: Patient is counseled again on complete smoking cessation (4) Overweight (BMI 25.0-29.9): Code(s): E66.3 - Overweight Category: Medical Plan: Reinforced diet/exercise as tolerated/lose weight Plan To return in 6 months for his next annual physical examination Orders: Orders Lipid Panel 08/13/24 E78.00 - Pure hypercholesterolemia, unspecified, E83.110 - Hereditary hemochromatosis, R79.89 - Other specified abnormal findings of blood chemistry TSH reflex Free T4 08/13/24 E78.00 - Pure hypercholesterolemia, unspecified, E83.110 - Hereditary hemochromatosis, R79.89 - Other specified abnormal findings of blood chemistry UA CC w/rflx Micro + Cult 08/13/24 E83.110 - Hereditary hemochromatosis, R30.0 - Dysuria, R79.89 - Other specified abnormal findings of blood chemistry Vitamin D 25-OH Total 08/13/24 E55.9 - Vitamin D deficiency, unspecified, E83.110 - Hereditary hemochromatosis, R79.89 - Other specified abnormal findings of blood chemistry Ferritin 08/13/24 E83.110 - Hereditary hemochromatosis, E83.119 - Hemochromatosis, unspecified, R79.89 - Other specified abnormal findings of blood chemistry Complete Blood Count Auto Diff 08/13/24 D64.9 - Anemia, unspecified, E83.110 - Hereditary hemochromatosis, R79.89 - Other specified abnormal findings of blood chemistry Comprehensive [place]. Panel Fast 08/13/24 E78.00 - Pure hypercholesterolemia, unspecified, E83.110 - Hereditary hemochromatosis, R79.89 - Other specified abnormal findings of blood chemistry Lactate Dehydrogenase 08/13/24 E83.110 - Hereditary hemochromatosis, E83.52 - Hypercalcemia, R79.89 - Other specified abnormal findings of blood chemistry
[2024-08-13 16:13] VITALS: BP 132/80; PULSE 79; O2SAT 97; BMI 26.8
--- OUTSIDE RECORDS SUMMARY | 2024-08-13 18:59 | XMS_ITS ---
Author Organization [facility] Address [address] [facility] [address] [place] [id number] Care Team Providers Care Patternmaker Metal Name Role Phone Steven RENEE, [place] Primary Care Provider Benedicto Nava Jr, Binu Balbuena REASON FOR VISIT labs Encounters Encounter Location Date Provider Diagnosis [facility] [address] [facility] [address] [place] [id number] 02/14/2024 Binu Nava Jr Elevated LFTs R79.89 Assessments Encounter Date Diagnosis (ICD Code) Assessment Notes Treatment Notes Treatment Clinical Notes Section Notes 02/14/2024 Elevated LFTs (ICD-10 - R79.89) Plan Of Treatment Pending Test Test Name Order Date LIVER PROFILE 02/14/2024 Next Appt Details Provider Name:Binu jon Jr, 06/04/2025 01:15:00 PM, [address] [place] [address], [address], [place], [phone], Progress Notes * EVERARDO NYEDOB: [birth year] (29 yo M)Acc No.[id number]:02/14/2024 Patient:?EVERARDO NYE :1995???Age:29 Y???Sex:Male Address:[address] [place] [address], [id number] Subjective: * Chief Complaints: * ???Labs * Medical History:? * Surgical History:? * Hospitalization/Major Diagno stic Procedure:? * Medications:? Objective: Assessment: * Assessment: 1.?Elevated LFTs - R79.89 (P rimary)? Plan: * Treatment: * Procedure Codes:? * true * Date:? Generated for Chelsey mcclure/Duran/Elio on:?08/13/2024 06:59 PM EDT
--- OUTSIDE RECORDS SUMMARY | 2024-08-13 18:59 | XMS_ITS ---
Author Organization [facility] Address [address] [place] [phone] Care Team Providers Care Community Relations Representative Name Role Phone Steven RENEE, [place] Primary Care Provider Binu Romero Jr Allergies No Known Allergies REASON FOR VISIT Patient presents today for hemachromatosis Social History Tobacco Use: Social History Observation Description Date Details (start date - stop date) Never Smoker NA - NA Tobacco Use/Smoking Question Answer Notes Patient is a nonsmoker Alcohol Screen Question Answer Notes Did you have a drink contain ing alcohol in the past year? Yes How often did you have a dri nk containing alcohol in the past year? 4 or more times a week (4 points) How many drinks did you have on a typical day when you were drinking in the past year? 3 or 4 drinks (1 point) How often did you have 6 or more drinks on one occasion in the past year? Never (0 point) Points 5 Interpretation Positive Section Notes: occasional chewing tobacco Vital Signs Blood pressure systolic 00 mm Hg 05/29/19 25 Blood pressure diastolic 00 mm Hg 025 Height 6 ft 0 in in 05/29/2024 Weight 190 lbs 05/29/2024 BMI 25.77 kg/m2 05/29/2024 Encounters Encounter Location Date Provider Diagnosis [facility] [address] [place] [phone] 05/29/2024 Binu Nava Jr Iron excess E83.19 and Gastroesophageal reflux disease without esophagitis K21.9 Assessments Encounter Date Diagnosis (ICD Code) Assessment Notes Treatment Notes Treatment Clinical Notes Section Notes 05/29/2024 Iron excess (ICD-10 - E83.19) Serum iron test material was printed He is doing well. Reflux symptoms are under good control. This is likely in part due to his weight loss. We discussed diet, lifestyle modifications, and weight management regarding the treatment of reflux. We discussed diet and excess. We discussed hemachromatosis today. We recommended followup with liver function testing, and iron levels. Previous fibrosis testing has shown no evidence of hepatic fibrosis. Followup in one year. Today's visit was 30 minutes. 05/29/2024 Gastroesophageal reflux disease without esophagitis (ICD-10 - K21.9) He is doing well. Reflux symptoms are under good control. This is likely in part due to his weight loss. We discussed diet, lifestyle modifications, and weight management regarding the treatment of reflux. We discussed diet and excess. We discussed hemachromatosis today. We recommended followup with liver function testing, and iron levels. Previous fibrosis testing has shown no evidence of hepatic fibrosis. Followup in one year. Today's visit was 30 minutes. Plan Of Treatment Treatment Notes Assessment Notes Iron excess Serum iron test mate rick was printed Pending Test Test Name Order Date LIVER PROFILE 05/29/2024 IRON + IBC (FE) 05/29/2024 FERRITIN 05/29/2024 CBC w/o DIFF 05/29/2024 Liver Fibrosis Pnl 05/29/2024 Next Appt Details Follow Up: 6 Months, 1 Year, Reason: Provider Name:Binu jon , 06/04/2025 01:15:00 PM, [address] [place] [address], [address], [phone], Progress Notes * EVERARDO NYEDOB: [birth year] (29 yo M)Acc No.[id number]:05/29/2024 Progress Notes Patient:?EVERARDO NYE Provider:?Binu Nava MD :1995???Age:29 Y???Sex:Male Abdi e:05/29/2024 Address:[address] [place], [place] [id number] Pcp:Rc Harris MD Subjective: * Chief Complaints: * ???1. Patient presents today for hemachromatosis. * HPI: ???New symptom(s):? The patient is a pleasant 29-year-old man seen today in followup of gastroesophageal reflux disease and iron excess. Since we saw him last, he's been doing well. He has lost weight. He is eating well. His alcohol use is approximately 2 drinks per week. Iron studies have shown no evidence of iron overload by iron and IBC levels. He has had an elevated ferritin and we discussed this today. 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 We discussed this in detail today. * Medical History:?Gastroesoph ageal reflux disease, Elevated liver function tests. * Family History:?Father: tiago peguero.?Mother: alive.? No family history of colon cancer. grandfather paternal no alcoholic cirrhosis. * Social History:?Tobacco Use:?Tobacco Use/Smoking?Patient is a?nonsmoker.?Drugs/Alcohol:?Alcohol Screen?Did you have a drink containing alcohol in the past year??Yes,?How often did you have a drink containing alcohol in the past year??4 or more times a week (4 points),?How many drinks did you have on a typical day when you were drinking in the past year??3 or 4 drinks (1 point),?How often did you have 6 or more drinks on one occasion in the past year??Never (0 point),?Points?5,?Interpretation?Positive.?Miscellaneous:?Marital status: single. 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 ???occasional chewing tobacco. * Medications:?Discontinued Pe pcid , Notes: prn, Discontinued Mylanta , Notes: prn, Medication List reviewed and reconciled with the patient * Allergies:?N.K.D.A. Objective: * Vitals:?Wt: 190 lbs, Ht: 6 f t 0 in, BMI:25.77 Index, BP: 00/00 mm Hg. * Examination: ???General Examination: ???On examination today, he appears well. Skin is anicteric. Lungs are clear. Heart shows a regular rate and rhythm. Abdomen soft without focal masses or tenderness. Extremities are without edema. Assessment: * Assessment: 1.?Iron excess - E83.19 (Tyra shelton)?2.?Gastroesophageal reflux disease without esophagitis - K21.9? He is doing well. Reflux sym ptoms are under good control. This is likely in part due to his weight loss. We discussed diet, lifestyle modifications, and weight management regarding the treatment of reflux. We discussed diet and excess. We discussed hemachromatosis today. We recommended followup with liver function testing, and iron levels. Previous fibrosis testing has shown no evidence of hepatic fibrosis. Followup in one year. Today's visit was 30 minutes. Plan: * Treatment: * Procedure Codes:?G9903 Pt sc rn tbco id as non user, G9745 DOC RSN FOR NOT SCREEN/REC F/U HBP * Preventive Medicine:? ??Counseling:?Care goal follow-up plan:?Above Normal BMI Follow-up?Giving encouragement to exercise,?BMI management provided?Yes.? * Follow Up:?6 Months, 1 Year * * Sign off status: Completed true * Provider:?Binu Nava MD Date:?0 05/29/2024 Generated for Chelsey mcclure/Duran/eTransmitting on:?08/13/2024 06:59 PM EDT History and Physical Notes * HPI (History of Present Illness) Category Sub-Category Detail Notes Category Not es New symptom(s) The patient i s a pleasant 29-year-old man seen today in followup of gastroesophageal reflux disease and iron excess. Since we saw him last, he's been doing well. He has lost weight. He is eating well. His alcohol use is approximately 2 drinks per week. Iron studies have shown no evidence of iron overload by iron and IBC levels. He has had an elevated ferritin and we discussed this today. 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 We discussed this in detail today. Examination Category Sub-Category Detail Notes Category Not es General Examination On exami [facility] today, he appears well. Skin is anicteric. Lungs are clear. Heart shows a regular rate and rhythm. Abdomen soft without focal masses or tenderness. Extremities are without edema.
--- OUTSIDE RECORDS SUMMARY | 2024-08-13 18:59 | XMS_ITS | Patient Health Record ---
[facility] Organization [facility] Address [address] [place] [address] Care Team Providers Care Real Estate Paralegal Name Role Phone Steven RENEE, Rc Primary Care Provider Binu Romero Jr Unavailable Allergies No Known Allergies Results Component Value Reference Range Notes Prothrombin Time INR Reviewed date:01/17/2024 08:05:41 AM Interpretation: Performing Lab:[facility], [address] [place] [phone] Notes/Report: Prothrombin Time 12.7 11.1-13.3 SEC INTERNATIONAL NORM RATIO 1.0 0.9-1.1 INTERNATIONAL NORMALIZED RATIO (INR) REFERENCE RANGES Reference Range For patients not on anticoagulant therapy: 0.9 - 1.1 INR ranges for oral anticoagulant therapy: For prevention and treatment of venous thrombosis and pulmonary embolism: 2.0 - 3.0 For acute myocardial infarction with aspirin therapy: 2.0 - 3.0 For acute myocardial infarction without aspirin therapy: 3.0 - 4.0 For patients with mechanical prosthetic heart valves: 2.5 - 3.5 Ferritin Reviewed date:01/17/2024 08:05:47 AM Interpretation: Performing Lab:[facility], [address] [place] [phone] Notes/Report: Ferritin 574 20-250 ng/mL Ceruloplasmin Reviewed date:01/17/2024 08:05:57 AM Interpretation: Performing Lab:[facility], [address] [place] [phone] Notes/Report: Ceruloplasmin 26 REFERENCE RANGE: 14-30 mg/dL THIS TEST PERFORMED AT: [facility] [address] [place] [address] [phone] SECURITY ATTENDANT: NEGRITO RIVERA MD Alpha 1 Anti-trypsin Reviewed date:01/17/2024 08:06:02 AM Interpretation: Performing Lab:[facility], [address] [place] [phone] Notes/Report: Alpha 1 Anti-trypsin 67 (L) REFERENCE RANGE: 83-199 mg/dL THIS TEST PERFORMED AT: [facility] [address] [place] [address] [phone] SECURITY ATTENDANT: NEGRITO RIVERA MD Liver Fibrosis Pnl Reviewed date:01/17/2024 08:05:52 AM Interpretation: Performing Lab:[facility], [address] [place] [phone] Notes/Report: Liver Fibrosis Score 0.16 THIS TEST PERFORMED AT: [facility] [facility] [address] [place] [address] [phone] SECURITY ATTENDANT: TONNY KUMAR MD, PHD, ELIDA Liver Fibrosis Stage F0 THIS TEST PERFORMED AT: [facility] [facility] [address] [place] [address] [phone] SECURITY ATTENDANT: TONNY KUMAR MD, PHD, ELIDA Liver Fibrosis Interpretation no fibrosis Fibro Test Score (f) Metavir Score f>=0 and f<=0.21 : F0 (no fibrosis) f>0.21 and f<=0.27 : F0-F1 (no fibrosis) f>0.27 and f<=0.31 : F1 (minimal fibrosis) f>0.31 and f<=0.48 : F1-F2 (minimal fibrosis) f>0.48 and f<=0.58 : F2 (moderate fibrosis) f>0.58 and f<=0.72 : F3 (advanced fibrosis) f>0.72 and f<=0.74 : F3-F4 (advanced fibrosis) f>0.74 and f<=1.00 : F4 (severe fibrosis) THIS TEST PERFORMED AT: [address] [address] [phone] SECURITY ATTENDANT: TONNY KUMAR MD, PHD, ELIDA Nec Inflam Act Score 0.47 THIS TEST PERFORMED AT: [address] [address] [phone] SECURITY ATTENDANT: TONNY KUMAR MD, PHD, ELIDA Nec Inflam Act Grade A1-A2 THIS TEST PERFORMED AT: [address] [address] [phone] SECURITY ATTENDANT: TONNY KUMAR MD, PHD, ELIDA Nec Inflam Act Interpretation minimal activity ActiTest Score (a) Metavir Score a>=0 and a<=0.17 : A0 (no activity) a>0.17 and a<=0.29 : A0-A1 (no activity) a>0.29 and a<=0.36 : A1 (minimal activity) a>0.36 and a<=0.52 : A1-A2 (minimal activity) a>0.52 and a<=0.60 : A2 (significant activity) a>0.60 and a<=0.62 : A2-A3 (significant activity) a>0.62 and a<=1.00 : A3 (severe activity) THIS TEST PERFORMED AT: [facility] [address] [phone] SECURITY ATTENDANT: TONNY KUMAR MD, PHD, ELIDA IBX-Yyocj-9-Macroglobuli n 177 REFERENCE RANGE: 106-279 mg/dL THIS TEST PERFORMED AT: [facility] [employer] [address] [phone] SECURITY ATTENDANT: TONNY KUMAR MD, PHD, ELIDA FIB-Haptoglobin 131 REFERENCE RANGE: 43-212 mg/dL THIS TEST PERFORMED AT: [facility] [address] [place] [address] [phone] SECURITY ATTENDANT: TONNY KUMAR MD, PHD, ELIDA FIB-Apolipoprotein A1 110 REFERENCE RANGE: 94-176 mg/dL THIS TEST PERFORMED AT: [facility] [address] [place] [address] [phone] SECURITY ATTENDANT: TONNY KUMAR MD, PHD, ELIDA FIB-Total Bilirubin 0.3 REFERENCE RANGE: 0.2-1.2 mg/dL THIS TEST PERFORMED AT: [facility] [address] [place] [address] [phone] SECURITY ATTENDANT: TONNY KUMAR MD, PHD, ELIDA FIB-GGT 69 REFERENCE RANGE: 3-70 U/L THIS TEST PERFORMED AT: [facility] [address] [place] [address] [phone] SECURITY ATTENDANT: TONNY KUMAR MD, PHD, LEIDA FIB-ALT 90 (H) REFERENCE RANGE: 9-46 U/L THIS TEST PERFORMED AT: [facility] [address] [place] [address] [phone] SECURITY ATTENDANT: TONNY KUMAR MD, PHD, ELIDA Reference ID [id number] Footnote SEE NOTE The reliability of results is dependent on compliance with the preanalytical and analytical conditions recommended by Sidelinesredictive. The tests have to be deferred for: acute hemolysis, acute hepatitis, acute inflammation, extra hepatic cholestasis. The advice of a specialist should be sought for interpretation in chronic hemolysis and Gilbert's syndrome. The test interpretation is not validated in liver transplant patients. Isolated extreme values of one of the components should lead to caution in interpreting the results. In case of discordance between a biopsy result and a test, it is recommended to seek the advice of a specialist. The causes of these discordances could be due to a flaw of the test or to a flaw in the biopsy: i.e. a liver biopsy has a 33% variability rate for one fibrosis stage. FibroTest is interpretable for chronic hepatitis B and C, alcoholic and non alcoholic steatosis. ActiTest is interpretable for chronic hepatitis B and C. The performance characteristics have been determined by [employer] [facility]. It has not been cleared or approved by the U.S. Food and Drug Administration. Performance characteristics refer to the analytical performance of the test. [employer], the associated logo, [employer] and all associated [employer] duran are the registered trademarks of [employer]. All third alliance party duran - (R) and (TM) - are the property of their respective owners. (C) [id number] [employer]ient. All rights reserved. THIS TEST PERFORMED AT: [facility] [address] [place] [address] [phone] SECURITY ATTENDANT: TONNY KUMAR MD, PHD, ELIDA Hemoglobin A1c Reviewed date:01/17/2024 08:04:59 AM Interpretation: Performing Lab:[facility], [address] [place] [phone] Notes/Report: Hemoglobin A1c % 4.9 <6.0 % Hemoglobin A1C Reference Range Adults: 4.8 - 6.0 % Non diabetic: < 6.0 % Goal: < 7.0 % Additional Action Suggested: > 8.0 % Note: Hemoglobin A1c results are invalid for patients with abnormal amounts of HbF. Blood transfusions may impact the HbA1c concentration in the patient sample. Estimated Average Glucose 94 eAG = Estimated average glucose which is %A1C expressed as average glucose, using the formula of the N5P-Llugevj Average Glucose study (ADAG), Diabetes Care, Vol.31,#8, Dec. 2007 US abdomen complete Reviewed date:12/20/2023 12:55:10 PM Interpretation: Performing Lab: Notes/Report: [address] [address] Ultrasound Report Signed Patient: Abrahan House MR#: [id number] : 1995 Acct:[id number] Age/Sex: 28 / M ADM Date: 12/12/23 Loc: HO.US Attending Dr: Binu Nava MD Ordering Physician: Binu Nava MD Date of Service: 12/12/23 Procedure(s): US abdomen complete Accession Number(s): [id number] cc: Binu Nava MD EXAMINATION: US ABDOMEN COMPLETE CLINICAL INFORMATION: Elevated LFTs. COMPARISON: None available. TECHNIQUE: Real-time imaging of the abdominal viscera. Limited visualization due to bowel gas. FINDINGS: PANCREAS: Poorly visualized. ABDOMINAL AORTA: Limited visualization. Imaged portions are within normal limits in caliber. INFERIOR VENA CAVA: Visualized portions are normal. LIVER: Hepatomegaly, 17.2 cm. Increased hepatic parenchymal heterogeneity and echogenicity could be associated with hepatocellular disease/hepatic steatosis and substantially limits visualization. Hypoechoic areas within the right hepatic lobe adjacent to the gallbladder may represent areas of focal sparing within a fatty liver. Correlation with liver function tests and clinical exam recommended to determine further management. GALLBLADDER: No gallbladder wall thickening. No gallstones. COMMON BILE DUCT: Normal in caliber measuring 0.3 cm in diameter. RIGHT KIDNEY: No hydronephrosis. No renal calculi. Limited visualization. The kidney measures 11.0 cm in maximum dimension. LEFT KIDNEY: No hydronephrosis. No renal calculi. Limited visualization. The kidney measures 10.7 cm in maximum dimension. SPLEEN: Normal. The spleen measures 11.6 cm in maximum dimension. FREE FLUID: None. US/US abdomen complete IMPRESSION: Hepatomegaly, 17.2 cm. Increased hepatic parenchymal heterogeneity and echogenicity could be associated with hepatocellular disease/hepatic steatosis and substantially limits visualization. Hypoechoic areas within the right hepatic lobe adjacent to the gallbladder may represent areas of focal sparing within a fatty liver. Correlation with liver function tests and clinical exam recommended to determine further management. This study was presented today December 19, 2023 for interpretation. Stat results provided at this time as requested by referring provider. Dictated By: Alexandra Petty MD Signed By: <Electronically signed by Alexandra Petty MD in OV> 12/19/23 1340 DD/ 0836 TD/TT: Cracking Machine Operator: [address] [place] [address] Ultrasound Report Signed Patient: Abrahan House MR#: [id number] : 1995 Acct:[id number] Age/Sex: 28 / M ADM Date: 12/12/23 Loc: HO.US Attending Dr: Simon Nava MD Ordering Physician: Binu Nava MD Date of Service: 12/12/23 Procedure(s): US abdomen complete Accession Number(s): [id number] cc: Binu Nava MD EXAMINATION: US ABDOMEN COMPLETE CLINICAL INFORMATION: Elevated LFTs. COMPARISON: None available. TECHNIQUE: Real-time imaging of the abdominal viscera. Limited visualization due to bowel gas. FINDINGS: PANCREAS: Poorly visualized. ABDOMINAL AORTA: Limited visualization. Imaged portions are within normal limits in caliber. INFERIOR VENA CAVA: Visualized portions are normal. LIVER: Hepatomegaly, 17.2 cm. Increased hepatic parenchymal heterogeneity and echogenicity could be associated with hepatocellular disease/hepatic steatosis and substantially limits visualization. Hypoechoic areas within the right hepatic lobe adjacent to the gallbladder may represent areas of focal sparing within a fatty liver. Correlation with blair er function tests and clinical exam recommended to determine further management. GALLBLADDER: No gallbladder wall thickening. No gallstones. COMMON BILE DUCT: Normal in caliber measuring 0.3 cm in diameter. RIGHT KIDNEY: No hydronephrosis. No renal calculi. Limited visualization. The kidney measures 11.0 cm in maximum dimension. LEFT KIDNEY: No hydronephrosis. No renal calculi. Limited visualization. The kidney measures 10.7 cm in maximum dimension. SPLEEN: Normal. The spleen measures 11.6 cm in maximum dimension. FREE FLUID: None. US/US abdomen complete IMPRESSION: Hepatomegaly, 17.2 c m. Increased hepatic parenchymal heterogeneity and echogenicity could b e associated with hepatocellular disease/hepatic steatosis and substantially limits visualization. Hypoechoic areas within the right hepatic lobe adjacent to the gallbladder may represent areas of focal spari ng within a fatty liver. Correlation with liver function tests and clinical exam recommended to determine further management. This study was presented today December 19, 2023 for interpretation. Stat results provided at this time as requested by referring provider. Dictated By: Alexandra Petty MD Signed By: <Electronically signed by Alexandra Petty MD in OV> 12/19/23 1340 DD/ 0836 TD/TT: Cracking Machine Operator: Liver Panel Reviewed date:12/17/2023 02:26:57 PM Interpretation: Performing Lab:[facility], [address] [place] [phone] Notes/Report: Bilirubin Total 0.5 0.0-1.0 mg/dL Bilirubin Direct 0.1 0.0-0.5 mg/dL Aspartate Amino Transferase 53 5-37 U/L Alanine Aminotransferase 166 0-40 U/L Total Protein 7.5 6.5-8.0 g/dL Albumin Level 4.8 3.5-5.0 g/dL Alkaline Phosphatase 78 39-117 U/L IRON PROFILE Reviewed date:12/17/2023 02:27:05 PM Interpretation: Performing Lab:[facility], [address] [place] [phone] Notes/Report: Iron 142 45-160 mcg/dL Total Iron Binding Capacity 306 228-428 mcg/dL Percent Iron Saturation 46 15-50 % Unsaturated Iron Binding 164 Ferritin Reviewed date:12/17/2023 02:26:40 PM Interpretation: Performing Lab:[facility], [address] [place] [phone] Notes/Report: Ferritin 737 20-250 ng/mL YASIR Reflex Titer and Pattern Reviewed date:12/20/2023 01:03:39 PM Interpretation: Performing Lab:[facility], [address] [place] [phone] Notes/Report: Anti Nuclear Antibody Screen NEGATIVE NEGATIVE YASIR IFA is a first line screen for detecting the presence of up to approximately 150 autoantibodies in various autoimmune diseases. A negative YASIR IFA result suggests an YASIR-associated autoimmune disease is not present at this time, but is not definitive. If there is high clinical suspicion for Sjogren's syndrome, testing for anti-SS-A/Ro antibody should be considered. Anti-Lenora-1 antibody should be considered for clinically suspected inflammatory myopathies. AC-0: Negative International Consensus on YASIR Patterns (https://doi.org/10.151 5/qbdn-0997-8135) For additional information, please refer to http://education.RetSKU.com/faq/FAQ1 77 (This link is being provided for informational/ educational purposes only.) THIS TEST WAS PERFORMED AT: [facility] [address] [place] [phone] NEGRITO RIVERA MD Anti Nuclear Antibody Titer TNP Anti Nuclear Antibody Pattern TNP YASIR Titer 2 TNP YASIR Pattern 2 TNP YASIR Titer 3 TNP YASIR Pattern 3 TNP Mitochondrial Antibody Reviewed date:12/26/2023 08:55:31 AM Interpretation: Performing Lab:[facility], [address] [place] [phone] Notes/Report: Mitochondrial Antibodies NEGATIVE NEGATIVE THIS TEST WAS PERFORMED AT: [facility] [address] [place] [address] NEGRITO RIVERA MD Mitochondrial Ab Titer TNP Smooth Muscle Antibody Reviewed date:12/26/2023 08:55:37 AM Interpretation: Performing Lab:[facility], [address] [place] [phone] Notes/Report: Smooth Muscle Antibody <20 <20 U Reference Range: <20 U: Negative >or=20 U: Positive Antibodies recognizing actin are the main component of smooth muscle antibodies associated with auto- immune liver disease. Actin antibodies are found in approximately 75% of patients with autoimmune hepatitis (AIH) type 1, approximately 65% of patients with autoimmune cholangitis, approximately 30% of patients with primary biliary cirrhosis and approximately 2% of healthy controls. High values are closely correlated with AIH type 1. THIS TEST WAS PERFORMED AT: [facility] [address] SEGUNDO SANTILLAN MD,PHD Hepatitis A,B,C Profile Reviewed date:12/17/2023 02:27:24 PM Interpretation: Performing Lab:[facility], [address] [place] [phone] Notes/Report: Hepatitis A Antibody IgM Nonreactive Nonreactive IgM antibodies to HAV not detected; does not exclude early acute or recovered HAV infection. Hepatitis B Surface Antibody NONREACTIVE Nonreactive Nonreactive: < 8.00 mIU/mL Hepatitis B Core Antibody Nonreactive Nonreactive Hepatitis C Antibody Nonreactive Nonreactive Antibodies to HCV not detected; does not exclude early acute HCV infection. Hepatitis B Surface Antigen Negative Negative DNA Analysis Hemochromatosis Reviewed date:02/07/2024 09:55:20 AM Interpretation: Performing Lab:[facility], [address] [facility], [place] [address] Notes/Report: DNA Analysis Hemochromatosis See Below RESULT: HETEROZYGOUS FOR THE C282Y AND H63D PATHOGENIC VARIANTS Interpretation: One copy each of the C282Y and H63D pathogenic variants in HFE gene was detected. Approximately 3%-8% of individuals with a biochemical diagnosis of hereditary hemochromatosis (HH) have this genotype. Therefore, this result is consistent with a diagnosis of HH in an individual with clinical evidence of HH. However, this genotype does not predict a diagnosis of HH in an asymptomatic individual, as only 0.5% to 2% of individuals with this genotype will develop symptoms or clinical evidence of this disorder. Disease diagnosis can only be made by demonstration of elevated iron stores. Genetic counseling is recommended to discuss the potential clinical implications of this result. Laboratory testing supervised and results monitored by Niall Johns, Ph.D., FAC, [facility], [facility]. DETAILED ASSAY INFORMATION: Hereditary hemochromatosis (HH) is an autosomal recessive disorder of iron metabolism that can result in iron overload and potential organ failure. It is one of the most common genetic disorders in individuals of - ancestry, with an estimated carrier frequency of 10%. HH is caused by pathogenic variants in the HFE gene. Most individuals with HH (60-90%) are homozygous for the C282Y pathogenic variant. A smaller percentage of affected individuals are either compound heterozygous for the C282Y and H63D pathogenic variants (3%-8%), or homozygous for the H63D pathogenic variant (approximately 1%). METHODOLOGY: This assay detects two pathogenic variants in the HFE gene, C282Y (NM 272999.2: c.845G>A, p.Zoz254Ijh) and H63D (NM 039120.2: c.187C>G, p.Gwp79Yjt), that are commonly associated with HH. These variants are detected by multiplex-polymerase chain reaction (PCR) amplification, followed by restriction enzyme digestion and capillary electrophoresis. LIMITATIONS: This assay does not detect other pathogenic variants in the HFE gene that may be associated with HH. Although rare, false positive or false negative results may occur. All results should be interpreted in the context of clinical findings, relevant history, and other laboratory data. Health care providers, please contact your local [employer] genetic counselor or call [phone] ( ) for assistance with the interpretation of these results. This test was developed and its analytical performance characteristics have been determined by [employer] [facility]. It has not been cleared or approved by FDA. This assay has been validated pursuant to the CLIA regulations and is used for clinical purposes. For more information, please refer to http://education.Someecards/faq/hemo chromatosis. (This link is being provided for informational/education al purposes only.) A portion of the testing was performed at [facility]. Reviewed and signed by Laboratory testing supervised and results monitored by Niall Johns, Ph.D., FACMG, [facility], [facility], Signed on 01/31/2024 at 09:47 THIS TEST WAS PERFORMED AT: [facility] [address] [place] [address] TONNY KUMAR MD,PHD,ELIDA Liver Panel Reviewed date:01/17/2024 08:05:37 AM Interpretation: Performing Lab:[address] [address] Notes/Report: Bilirubin Total 0.3 0.0-1.0 mg/dL Bilirubin Direct 0.1 0.0-0.5 mg/dL Aspartate Amino Transferase 41 5-37 U/L Alanine Aminotransferase 104 0-40 U/L Total Protein 7.2 6.5-8.0 g/dL Albumin Level 4.6 3.5-5.0 g/dL Alkaline Phosphatase 79 39-117 U/L IRON PROFILE Reviewed date:01/17/2024 08:05:29 AM Interpretation: Performing Lab:[address] [address] Notes/Report: Iron 106 45-160 mcg/dL Total Iron Binding Capacity 296 228-428 mcg/dL Percent Iron Saturation 36 15-50 % Unsaturated Iron Binding 190 Trypsin Reviewed date:01/17/2024 08:04:37 AM Interpretation: Performing Lab:[facility], [address] [place] [phone] Notes/Report: Trypsin TNP TEST CODE 58838 - TRYPSIN HAS BEEN DISCONTINUED NO RECOMMENDED ALTERNATIVE Liver Panel Reviewed date:02/14/2024 10:03:08 AM Interpretation: Performing Lab:[facility], [address] [place] [address] Notes/Report: Bilirubin Total 0.5 0.0-1.0 mg/dL Bilirubin Direct 0.1 0.0-0.5 mg/dL Aspartate Amino Transferase 31 5-37 U/L Alanine Aminotransferase 90 0-40 U/L Total Protein 7.5 6.5-8.0 g/dL Albumin Level 4.8 3.5-5.0 g/dL Alkaline Phosphatase 62 39-117 U/L Reason For Referral No Information Immunizations Vaccine Route Administration Date Status Comme nts Influenza Unknown 12/06/2023 Refused Social History Tobacco Use: Social History Observation [...] Points 5 Interpretation Positive Section Notes: occasional cigar or chewing tobacco occasional chewing tobacco Problems Problem Type SNOMED Code ICD Code Onset Dates Problem Status W/U Status Risk Notes Problem 873091024 Elevated LFTs (R79.89) Active confirmed Problem 781079433 Gastroesophageal reflux disease without esophagitis (K21.9) Active confirmed Problem Iron excess (45196289) Iron excess (E83.19) Active confirmed Problem Elevated liver enzymes level (648341401) Elevated liver function tests (R94.5) Active confirmed Vital Signs Blood pressure diastolic 00 mm Hg 05/29/2024 Height 6 ft 0 in in 05/29/2024 Blood pressure systolic 00 mm Hg 05/29/2024 Weight 190 lbs 05/29/2024 BMI 25.77 kg/m2 05/29/2024 Encounters Encounter Location Date Provider Diagnosis [facility] [address] [place] [address] 12/06/2023 Binu Nava Jr Elevated LFTs R79.89 and Gastroesophageal reflux disease without esophagitis K21.9 [facility] [address] [facility] [place] [address] 05/29/2024 Binu Nava Jr Iron excess E83.19 and Gastroesophageal reflux disease without esophagitis K21.9 [facility] [address] [place] [address] [address] 12/18/2023 Binu Nava Jr [facility] [address] [place] [phone] 01/02/2024 Binu Nava Jr Elevated liver function tests R94.5 and Iron excess E83.19 [facility] [address] [facility] [place] [address] 01/10/2024 Binu Nava Jr [facility] [address] [place] [phone] 01/23/2024 Binu Nava Jr Elevated LFTs R79.89 [facility] [address] [place] [phone] 02/07/2024 Binu Nava Jr [facility] [address] [place] [phone] 02/14/2024 Binu Nava Jr Elevated LFTs R79.89 [facility] [address] [place] [phone] 05/26/2024 Binu Nava Jr Assessments Encounter Date Diagnosis (ICD Code) Assessment Notes Treatment Notes Treatment Clinical Notes Section Notes 12/06/2023 Elevated LFTs (ICD-10 - R79.89) Liver disease - resources material was printed We discussed his lab work today in detail. We reviewed his outside records. The etiology for his liver function tests is not clear. He will have further imaging with ultrasound testing and other metabolic and autoimmune markers as well as viral serologies. We discussed the differential diagnosis for liver function test elevations today including fatty liver. The enzyme pattern elevation of his liver tests is not suggestive of alcohol. For his reflux, we recommended a trial of omeprazole for 8 weeks. We discussed diet, lifestyle modifications, and weight management regarding gastroesophageal reflux disease 12/06/2023 Gastroesophageal reflux disease without esophagitis (ICD-10 - K21.9) We discussed hi s lab work today in detail. We reviewed his outside records. The etiology for his liver function tests is not clear. He will have further imaging with ultrasound testing and other metabolic and autoimmune markers as well as viral serologies. We discussed the differential diagnosis for liver function test elevations today including fatty liver. The enzyme pattern elevation of his liver tests is not suggestive of alcohol. For his reflux, we recommended a trial of omeprazole for 8 weeks. We discussed diet, lifestyle modifications, and weight management regarding gastroesophageal reflux disease 05/29/2024 Gastroesophageal reflux disease without esophagitis (ICD-10 [...] year. Today's visit was 30 minutes. 05/29/2024 Iron excess (ICD-10 - E83.19) Serum [...] one year. Today's visit was 30 minutes. 01/02/2024 Iron excess (ICD-10 - E83.19) 01/02/2024 Elevated liver function tests (ICD-10 - R94.5) 01/23/2024 Elevated LFTs (ICD-10 - R79.89) To be done in March. 02/14/2024 Elevated LFTs (ICD-10 - R79.89) Plan Of Treatment Pending Test Test Name Order Date LIVER PROFILE 02/14/2024 LIVER PROFILE 05/29/2024 LIVER PROFILE 12/06/2023 LIVER PROFILE 01/02/2024 LIVER PROFILE 01/23/2024 IRON + IBC (FE) 05/29/2024 IRON + IBC (FE) 12/06/2023 IRON + IBC (FE) 01/02/2024 FERRITIN 05/29/2024 FERRITIN 12/06/2023 CBC w/o DIFF 05/29/2024 CBC w/o DIFF 12/06/2023 HEPATITIS A,B,C PROFILE 12/06/2023 MITOCHONDRIAL AB 12/06/2023 SMOOTH MUSCLE ANTIBODIES 12/06/2023 HEMOCHROMATOSIS (C282Y) 01/02/2024 US ABD 12/06/2023 Liver Fibrosis Pnl 05/29/2024 YASIR Reflex Titer and Pattern 12/06/2023 Next Appt Details Provider Name:Binu jon Jr, 06/04/2025 01:15:00 PM, [address] [place] [address], [address], [place], [address], Insurance Providers Payer Name Payer Address Payer Phone Subscriber Number Group Number Insured Name Patient Relationship to Insured Coverage Start Date Coverage End Date SAMIRNA [address] Salma pate, [place]ÑA [id number] ABRAHAN HOUSE Self - patient is the insured Medical (General) History Medical History History ICD Code Gastroesophageal reflux disease Elevated liver function tests Surgical History Surgery Date(Month/Year) Hospitalization History Reason Date(Month/Year)
--- OUTSIDE RECORDS SUMMARY | 2024-08-13 18:59 | XMS_ITS | Data Portability ---
Author Organization [facility] [employer], [address] Address [address] [place] [address] Assessment No assessment recorded. Plan of Treatment Reminders Order Date Submit Date Provider Last Modified By Organization Details Last Modified Time Details Appointments None recorded. Lab CMP, serum or plasma 2023 024 NORMA [facility] [address] [place], [address], 4 08:08:19 CBC w/ auto diff 2023 024 NORMA [facility] [address] [place], [address], 4 06:07:16 TSH, ultra-sensi tive, serum 2023 024 CADIZ [facility] [address] [place], [address], 4 10:06:15 borrelia burgdorferi IgG + IgM + total panel, IA, serum 2023 024 NORMA [facility] ([place] [address] [place], [address], 4 14:06:35 Referral cardiologis t referral 2023 024 [email or web address] Not available 13:45:40 Procedures None recorded. Surgeries None recorded. Imaging electrocard iogram, routine ECG, 12 leads min 2023 024 [email or web address] Not available 15:09:41 Medication Orders None recorded. Patient TargetsNo targets recorded. Patient InstructionsNo instructions recorded. 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 Referring Physician: Osito Arce, Urgent Care, Encounter Date: 12/03/2023 Results Created Date Observation Date Name Description Value Unit Range Abnormal Flag Note LastModifiedBy Organization Detail LastModifiedTime 12/03/19 24 12/04/2023 CBC WITH DIFFE RENTI AL/PL ATELE T WBC 6.9 x10e3 /uL 3.4-10 .8 normal Not Available [facility] [address] [place], [address], 12/04/2023 06:07:16 12/03/19 24 12/04/2023 CBC WITH DIFFE RENTI AL/PL ATELE T RBC 5.55 x10e6 /uL 4.14-5 .80 normal Not Available [facility] ([facility]) [address] [place], [address], 12/04/2023 06:07:16 12/03/19 24 12/04/2023 CBC WITH DIFFE RENTI AL/PL ATELE T hemoglobin 15.4 g/dL 13.0-1 7.7 normal Not Available [facility] ([facility]) [address] [place], [address], 12/04/2023 06:07:16 12/03/19 24 12/04/2023 CBC WITH DIFFE RENTI AL/PL ATELE T hematocrit 48.0 % 37.5-5 1.0 normal Not Available [facility] ([facility]) [address] [place], [address], 12/04/2023 06:07:16 12/03/19 24 12/04/2023 CBC WITH DIFFE RENTI AL/PL ATELE T MCV 87 fL 79-97 normal Not Available [facility] ([facility]) [address] [place], [address], 12/04/2023 06:07:16 12/03/19 24 12/04/2023 CBC WITH DIFFE RENTI AL/PL ATELE T MCH 27.7 pg 26.6-3 3.0 normal Not Available [facility] ([facility]) [address] [facility], [place], [address], 12/04/2023 06:07:16 12/03/19 24 12/04/2023 CBC WITH DIFFE RENTI AL/PL ATELE T MCHC 32.1 g/dL 31.5-3 5.7 normal Not Available [facility] ([facility]) [address] [facility], [place], [address], 12/04/2023 06:07:16 12/03/19 24 12/04/2023 CBC WITH DIFFE RENTI AL/PL ATELE T RDW 13.0 % 11.6-1 5.4 Not Available [facility] ([facility]) [address] [facility], [place], [address], 12/04/2023 06:07:16 12/03/19 24 12/04/2023 CBC WITH DIFFE RENTI AL/PL ATELE T platelets 305 x10e3 /uL 150-45 0 normal Not Available [facility] ([facility]) [address] [facility], [place], [address], 12/04/2023 06:07:16 12/03/19 24 12/04/2023 CBC WITH DIFFE RENTI AL/PL ATELE T neutrophils 61 % not estab. normal Not Available [facility] ([facility]) [address] [place], [address], 12/04/2023 06:07:16 12/03/19 24 12/04/2023 CBC WITH DIFFE RENTI AL/PL ATELE T lymphs 25 % not estab. normal Not Available [facility] ([facility]) [address] [place], [address], 12/04/2023 06:07:16 12/03/19 24 12/04/2023 CBC WITH DIFFE RENTI AL/PL ATELE T monocytes 10 % not estab. normal Not Available [facility] ([facility]) [address] [facility], [place], [address], 12/04/2023 06:07:16 12/03/19 24 12/04/2023 CBC WITH DIFFE RENTI AL/PL ATELE T eos 2 % not estab. normal Not Available [facility] ([facility]) [address] [facility], [place], [address], 12/04/2023 06:07:16 12/03/19 24 12/04/2023 CBC WITH DIFFE RENTI AL/PL ATELE T basos 1 % not estab. normal Not Available [facility] ([facility]) [address] [facility], [place], [address], 12/04/2023 06:07:16 12/03/19 24 12/04/2023 CBC WITH DIFFE RENTI AL/PL ATELE T immature cells SYSTEM TECHNOLOGIST Not Available [facility] ([facility]) [address] [facility], [place], [address], 12/04/2023 06:07:16 12/03/19 24 12/04/2023 CBC WITH DIFFE RENTI AL/PL ATELE T neutrophils (absolute) 4.3 x10e3 /uL 1.4-7. 0 normal Not Available [facility] ([facility]) [address] [place], [address], 12/04/2023 06:07:16 12/03/19 24 12/04/2023 CBC WITH DIFFE RENTI AL/PL ATELE T lymphs (absolute) 1.8 x10e3 /uL 0.7-3. 1 normal Not Available [facility] ([facility]) [address] [facility], [place], [address], 12/04/2023 06:07:16 12/03/19 24 12/04/2023 CBC WITH DIFFE RENTI AL/PL ATELE T monocytes(ab solute) 0.7 x10e3 /uL 0.1-0. 9 normal Not Available [facility] ([facility]) [address] [facility], [place], [address], 12/04/2023 06:07:16 12/03/19 24 12/04/2023 CBC WITH DIFFE RENTI AL/PL ATELE T eos (absolute) 0.1 x10e3 /uL 0.0-0. 4 normal Not Available [facility] ([facility]) [address] [facility], [place], [address], 12/04/2023 06:07:16 12/03/19 24 12/04/2023 CBC WITH DIFFE RENTI AL/PL ATELE T baso (absolute) 0.1 x10e3 /uL 0.0-0. 2 normal Not Available [facility] ([facility]) [address] [facility], [place], [address], 12/04/2023 06:07:16 12/03/19 24 12/04/2023 CBC WITH DIFFE RENTI AL/PL ATELE T immature granulocytes 1 % not estab. Not Available [facility] ([facility]) [address] [facility], [place], [address], 12/04/2023 06:07:16 12/03/19 24 12/04/2023 CBC WITH DIFFE RENTI AL/PL ATELE T immature grans (abs) 0.1 x10e3 /uL 0.0-0. 1 Not Available [facility] ([facility]) [address] [facility], [place], [address], 12/04/2023 06:07:16 12/03/19 24 12/04/2023 CBC WITH DIFFE RENTI AL/PL ATELE T NRBC SYSTEM TECHNOLOGIST Not Available [facility] ([facility]) [address] [facility], [place], [address], 12/04/2023 06:07:16 12/03/19 24 12/04/2023 CBC WITH DIFFE WADE AL/PL ATELE T hematology comments: SYSTEM TECHNOLOGIST Not Available [facility] ([facility]) [address] [facility], [place], [address], 12/04/2023 06:07:16 12/03/19 24 12/04/2023 COMP. METAB OLIC PANEL (14) glucose 85 mg/dL 70-99 normal Not Available [facility] ([facility]) [address] [facility], [place], [address], 12/04/2023 08:08:19 12/03/19 24 12/04/2023 COMP. METAB OLIC PANEL (14) BUN 10 mg/dL 6-20 normal Not Available [facility] ([facility]) [address] [facility], [place], [address], 12/04/2023 08:08:19 12/03/19 24 12/04/2023 COMP. METAB OLIC PANEL (14) creatinine 0.81 mg/dL 0.76-1 .27 normal Not Available [facility] ([facility]) [address] [facility], [place], [address], 12/04/2023 08:08:19 12/03/19 24 12/04/2023 COMP. METAB OLIC PANEL (14) eGFR 122 mL/mi n/1.7 3 >59 normal Not Available [facility] ([facility]) [address] [facility], [place], [address], 12/04/2023 08:08:19 12/03/19 24 12/04/2023 COMP. METAB OLIC PANEL (14) BUN/creatini ne ratio 12 9-20 normal Not Available [facility] ([facility]) [address] [facility], [place], [address], 12/04/2023 08:08:19 12/03/19 24 12/04/2023 COMP. METAB OLIC PANEL (14) sodium 139 mmol/ L 134-14 4 normal Not Available [facility] ([facility]) [address] [place], [address], 12/04/2023 08:08:19 12/03/19 24 12/04/2023 COMP. METAB OLIC PANEL (14) potassium 4.6 mmol/ L 3.5-5. 2 normal Not Available [facility] ([facility]) [address] [place], [address], 12/04/2023 08:08:19 12/03/19 24 12/04/2023 COMP. METAB OLIC PANEL (14) chloride 102 mmol/ L 96-106 normal Not Available [facility] ([facility]) [address] [place], [address], 12/04/2023 08:08:19 12/03/19 24 12/04/2023 COMP. METAB OLIC PANEL (14) carbon dioxide, total 23 mmol/ L 20-29 normal Not Available [facility] ([facility]) [address] [place], [address], 12/04/2023 08:08:19 12/03/19 24 12/04/2023 COMP. METAB OLIC PANEL (14) calcium 9.7 mg/dL 8.7-10 .2 normal Not Available [facility] ([facility]) [address] [place], [address], 12/04/2023 08:08:19 12/03/19 24 12/04/2023 COMP. METAB OLIC PANEL (14) protein, total 7.3 g/dL 6.0-8. 5 normal Not Available [facility] ([facility]) [address] [place], [address], 12/04/2023 08:08:19 12/03/19 24 12/04/2023 COMP. METAB OLIC PANEL (14) albumin 4.9 g/dL 4.3-5. 2 normal Not Available [facility] ([facility]) [address] [facility] [place], [address], 12/04/2023 08:08:19 12/03/19 24 12/04/2023 COMP. METAB OLIC PANEL (14) globulin, total 2.4 g/dL 1.5-4. 5 Not Available [facility] ([facility]) [address] [facility] [place], [address], 12/04/2023 08:08:19 12/03/19 24 12/04/2023 COMP. METAB OLIC PANEL (14) bilirubin, total 0.5 mg/dL 0.0-1. 2 normal Not Available [facility] ([facility]) [address] [facility] [place], [address], 12/04/2023 08:08:19 12/03/19 24 12/04/2023 COMP. METAB OLIC PANEL (14) alkaline phosphatase 90 IU/L 44-121 normal Not Available [facility] ([facility]) [address] [facility] [place], [address], 12/04/2023 08:08:19 12/03/19 24 12/04/2023 COMP. METAB OLIC PANEL (14) AST (SGOT) 153 IU/L 0-40 above high normal Not Available [facility] ([facility]) [address] [facility] [place], [address], 12/04/2023 08:08:19 12/03/19 24 12/04/2023 COMP. METAB OLIC PANEL (14) ALT (SGPT) 432 IU/L 0-44 above high normal Not Available [facility] ([facility]) [address] [facility] [place], [address], 12/04/2023 08:08:19 12/03/19 24 12/04/2023 TSH TSH 1.370 uIU/m L 0.450- 4.500 normal Not Available [facility] ([facility]) [address] [facility] [place], [address], 12/04/2023 10:06:15 12/03/19 24 12/04/2023 LYME DISEA SE SEROL OGY W/REF MANUEL lyme total antibody vicente NEGATI VE negati ve Lyme antib odies not detec chaparrita. Refle x testi ng is not indic ated. No labor atory evide nce of infec tion with B. burgd orfer i (Lyme disea se). Negat best resul ts may occur in patie nts recen tly infec chaparrita (less than or equal to 14 days) with B. burgd orfer i. If recen t infec tion is suspe cted, repea t testi ng on a new sampl e colle cted in 7 to 14 days is recom prashanth d. Not Available [facility] ([facility]) [address] [facility], [place], [address], 12/04/2023 14:06:35 12/03/19 24 elect rhea mora am, stefan beard ECG, 12 leads min No observ ation record ed. [email or web address] Not Available 11/18 19:06:32 Result Notes None recorded. Problems Name Problem SNOMED Code Status Onset Date Resolution Date Notes Provider Name and Address Organization Details Recorded Time Palpitations 03816390 Active 024 Osito Arce, DO [address] , [place], [address] , [place] - [facility] 12:35:19 Problem Notes None recorded. Procedures Surgical History None recorded. Imaging Results Imaging Date Name Status LastModified by Organiz ation Details LastModified Time 12/03/2023 electrocardi ogram, routine ECG, 12 leads min completed [email or web address] Information not available 12/03/2023 19:06:32 Procedure Notes None recorded. Medical Equipment None Reported. Allergies No known drug allergies Medications Name Sig Start Date Stop Date Status Note LastModified by Organization Details LastModified Time fluconazole 150 mg tablet TAKE 2 TABLETS (300 MG TOTAL) BY MOUTH ONCE FOR 1 DOSE. REPEAT DOSE IN 1 WEEK. 12/02 completed Not Available Not Available Not Available Vitals Date Recorded Body height Body mass index (BMI) Body weight Pain severity - 0-10 verbal numeric rating [Score] - Reported Respiratory rate Heart rate Oxygen saturation Oxygen saturation in Arterial blood by Pulse oximetry Body temperature Systolic blood pressure Diastolic blood pressure Systolic blood pressure Diastolic blood pressure Provider Name and Address Organization Details Last Updated DateTime 4 182.88 cm 28.5 kg/m2 56401.4 g 1 16 /min 74 /min 97 % 97 % 97.1 [degF] 140 mm[Hg] 102 mm[Hg] 145 mm[Hg] 83 mm[Hg] Naima Jiang PA - [facility] 4 12:34:01 Social History Question Answer Notes LastModified by Organizat ion Details LastModified Time What Is Your Level Of Alcohol Consumption? Occasional Information not available 12/03/2023 How Many Times Per Week Do You Consume Alcohol? 1-2 Times Per Week Information not available 12/03/2023 Are You Currently Employed? Yes Information not available 12/03/2023 Have You Had A Flu Shot This Season? No Information not available 12/03/2023 If No, Would You Like A Flu Shot Today? No Information not available 12/03/2023 Have You Had Direct Contact, Or Contact During Intimacy, With Monkeypox Rash, Scabs, Or Body Fluids From A Person With Monkeypox? No Information not available 12/03/2023 Do You Use Any Illicit Or Recreational Drugs? No Information not available 12/03/2023 Have You Recently Traveled Abroad? No Information not available 12/03/2023 Are You Currently In School? No Information not available 12/03/2023 Do You Or Have You Ever Used Any Other Forms Of Tobacco Or Nicotine? No Information not available 12/03/2023 Sex: Unknown Functional Status None recorded. Mental Status None recorded. Family History Relationship Description Onset Age of this Age Resolved Age Notes LastModified by Organization Details LastModified Time Mother Hypertensive disorder 29 Not available 12/02 12:25:44 Mother Bypass graft 56 Not patti daksha 12/03/2023 12:26:25 Medical History No medical history recorded. Past Encounters Encounter ID Performer Location Encounter Start Date Encounter Closed Date Diagnosis/Indication Diagnosis SNOMED-CT Code Diagnosis ICD10 Code Diagnosis Note [id number] [facility] [facility] [place] [address] 05/22/2018 17:47:21 05/22/2018 19:10:20 [id number] [facility] [address] [place] [address] 01/29/2017 12:09:20 01/29/2017 12:58:16 [id number] [facility] [address] [place] [address] 03/27/2021 15:00:18 03/27/2021 16:50:20 [id number] [facility] [address] [place] [address] 7 03/25/2022 08:37:00 03/25/2022 09:58:30 [id number] [facility] [address] [place] [address] 7 01/27/2017 08:56:46 01/27/2017 12:38:03 [id number] [address] [place] [address] 7 05/23/2016 12:47:00 05/23/2016 13:17:53 [id number] José [address] [place] [id number] 7 01/25/2017 12:15:44 01/25/2017 14:10:13 [id number] José [address] [place] [address] 7 01/23/2017 11:31:12 01/23/2017 12:02:47 [id number] [address] [place] [address] 7 01/22/2018 11:42:46 01/22/2018 12:26:53 [id number] [address] [place] [address] 7 08/01/2020 09:32:46 08/01/2020 10:36:25 [id number] [address] 01/24/2018 12:07:47 01/24/2018 13:21:44 [id number] [address] [address] 05/30/2018 16:07:05 05/30/2018 17:05:32 [id number] [address] [address] 06/20/2018 14:59:34 06/20/2018 15:54:52 [id number] Osito [facility]ce [facility] [address] [facility] [address] [place] [address] 12/03/2023 12:16:00 12/03/2023 13:45:40 Palpitations 98221342 R00.2 [facility] avoid caffeine and stop smoking er if any chest pain EKG done today shows nsr 62 bpm. no acute changes Health Concerns Section Related Observation LastModified by Organization Detai ls LastModified Time None Recorded Concern Status LastModified by Organization Details LastModified Time None Recorded Advance Directives Directive None Recorded Payers Encounter Date Sequence Insurance Name Policy Number Policy Jones Covered Member ID Jones Member ID Guarantor Name 03/25/2022 1 [facility] [id number] Abrahan J [facility] [id number] [facility] 12/03/2023 1 [facility] [id number] [facility]han [facility] [id number] Abrahan Flor [facility] Notes Date Note Type Note Provider Name and Address Organization Details Recorded Time 12/03/2023 text/html patient woke at at 415 this am and had palpitations like his heart was going to beat out of his chest he's never had this before. no light headedness. no chest pain. he does drink energy drinks daily. smokes cigars regularly. 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 outdoors in the [place] regularly. mother has hx of CABG. Osito Arce DO [address] [place], [address], [place] - [facility] 12/03/2023 19:55:49
--- OUTSIDE RECORDS SUMMARY | 2024-08-13 18:59 | XMS_ITS ---
Author Organization [facility] Address [address] [place] [address] Care Team Providers Care Process Helper Name Role Phone Steven RENEE, [place] Primary Care Provider Benedicto Nava Jr, Binu Balbeuna [phone] REASON FOR VISIT pt has cigna Encounters Encounter Location Date Provider Diagnosis [facility] [address] [place] [address] 05/26/2024 Binu Nava Jr Plan Of Treatment Next Appt Details Provider Name:Binu jon Jr, 06/04/2025 01:15:00 PM, [address] [facility], [address], [place], [address], Progress Notes * EVERARDO NYEDOB: [birth year] (29 yo M)Acc No.[id number]:05/26/2024 Patient:?EVERARDO NYE :1995???Age:29 Y???Sex:Male Address:[address] [place], [address] * true * Date:? Generated for Celyi ren/Duran/eTransmitting on:?08/13/2024 06:59 PM EDT
== END 2024-08-13 17:10 | disposition home or self-care (01) ==
PROVIDERS: PCP Internal Medicine; Visit Provider Internal Medicine
DX: R79.89 Other specified abnormal findings of blood chemistry (principal); E83.110 Hereditary hemochromatosis; Z72.0 Tobacco use; E66.3 Overweight

== ENCOUNTER → 2024-08-13 16:11 | Outpatient (BNVA) | payer OTHER, SELFPAY | PROVIDERS: PCP Internal Medicine; Visit Provider Internal Medicine | DX: R79.89 Other specified abnormal findings of blood chemistry (principal); E83.110 Hereditary hemochromatosis; E66.3 Overweight; Z68.26 Body mass index [BMI] 26.0-26.9, adult; Z72.0 Tobacco use | CPT/HCPCS: 96127 ==

== ENCOUNTER 2024-09-02 08:26 | Outpatient (REF) | payer OTHER, SELFPAY ==
--- OUTSIDE RECORDS SUMMARY | 2024-09-02 08:35 | XMS_ITS ---
Author Organization [facility] Address [address] [place] [address] Care Team Providers Care Customer Account Representative Name Role Phone Steven RENEE, [place] Primary Care Provider Benedicto Nava Jr, Binu Balbuena [phone] REASON FOR VISIT pt has cigna Encounters Encounter Location Date Provider Diagnosis [facility] [address] [place] [address] 05/26/2024 Binu Nava Jr Plan Of Treatment Next Appt Details Provider Name:Binu jon Jr, 06/04/2025 01:15:00 PM, [address] [facility], [address], [place], [address], Progress Notes * EVERARDO NYEDOB: [birth year] (29 yo M)Acc No.[id number]:05/26/2024 Patient:?EVERARDO NYE :1995???Age:29 Y???Sex:Male Address:[address] [place] [address], [address] * true * Date:? Generated for Celyi ren/Duran/eTransmitting on:?09/02/2024 08:35 AM EDT
--- OUTSIDE RECORDS SUMMARY | 2024-09-02 08:35 | XMS_ITS | Data Portability ---
Author Organization [facility], [address] Address [address] [place] [address] Assessment No assessment recorded. Plan of Treatment Reminders Order Date Submit Date Provider Last Modified By Organization Details Last Modified Time Details Appointments None recorded. Lab CMP, serum or plasma 2023 024 [facility] [address] [place], [address], 4 08:08:19 CBC w/ auto diff 2023 024 [facility] [address] [place], [address], 4 06:07:16 TSH, ultra-sensi tive, serum 2023 024 [place] [facility] [address] [place], [address], 4 10:06:15 borrelia burgdorferi IgG + IgM + total panel, IA, serum 2023 024 [facility] ([facility] [address] [place], [address], 4 14:06:35 Referral cardiologis t referral 2023 024 [email or web address] Not available 4 13:45:40 Procedures None recorded. Surgeries None recorded. Imaging electrocard iogram, routine ECG, 12 leads min 2023 024 [email or web address] Not available 15:09:41 Medication Orders None recorded. Patient TargetsNo targets recorded. Patient InstructionsNo instructions recorded. 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 Referring Physician: Osito Arce, Urgent Care, Encounter Date: 12/03/2023 Results Created Date Observation Date Name Description Value Unit Range Abnormal Flag Note LastModifiedBy Organization Detail LastModifiedTime 12/03/19 24 12/04/2023 CBC WITH DIFFE RENTI AL/PL ATELE T WBC 6.9 x10e3 /uL 3.4-10 .8 normal Not Available [facility] ([facility]) [address] [place], [address], 12/04/2023 06:07:16 12/03/19 24 12/04/2023 CBC WITH DIFFE RENTI AL/PL ATELE T RBC 5.55 x10e6 /uL 4.14-5 .80 normal Not Available [facility] ([facility]) [address] [place], [address], 12/04/2023 06:07:16 12/03/19 24 12/04/2023 CBC WITH DIFFE RENTI AL/PL ATELE T hemoglobin 15.4 g/dL 13.0-1 7.7 normal Not Available [facility] ([facility]) [address] [place], [address], 12/04/2023 06:07:16 12/03/19 24 12/04/2023 CBC WITH DIFFE RENTI AL/PL ATELE T hematocrit 48.0 % 37.5-5 1.0 normal Not Available [facility] ([facility]) [address] [place], [address], 12/04/2023 06:07:16 12/03/19 24 12/04/2023 CBC WITH DIFFE RENTI AL/PL ATELE T MCV 87 fL 79-97 normal Not Available [facility] ([facility]) [address] [place], [address], 12/04/2023 06:07:16 12/03/19 24 12/04/2023 CBC WITH DIFFE RENTI AL/PL ATELE T MCH 27.7 pg 26.6-3 3.0 normal Not Available [facility] ([facility]) [address] [facility], [place], [address], 12/04/2023 06:07:16 12/03/19 24 12/04/2023 CBC WITH DIFFE RENTI AL/PL ATELE T MCHC 32.1 g/dL 31.5-3 5.7 normal Not Available [facility] ([facility]) [address] [facility], [place], [address], 12/04/2023 06:07:16 12/03/19 24 12/04/2023 CBC WITH DIFFE RENTI AL/PL ATELE T RDW 13.0 % 11.6-1 5.4 Not Available [facility] ([facility]) [address] [facility], [place], [address], 12/04/2023 06:07:16 12/03/19 24 12/04/2023 CBC WITH DIFFE RENTI AL/PL ATELE T platelets 305 x10e3 /uL 150-45 0 normal Not Available [facility] ([facility]) [address] [facility], [place], [address], 12/04/2023 06:07:16 12/03/19 24 12/04/2023 CBC WITH DIFFE RENTI AL/PL ATELE T neutrophils 61 % not estab. normal Not Available [facility] ([facility]) [address] [place], [address], 12/04/2023 06:07:16 12/03/19 24 12/04/2023 CBC WITH DIFFE RENTI AL/PL ATELE T lymphs 25 % not estab. normal Not Available [facility] ([facility]) [address] [place], [address], 12/04/2023 06:07:16 12/03/19 24 12/04/2023 CBC WITH DIFFE RENTI AL/PL ATELE T monocytes 10 % not estab. normal Not Available [facility] ([facility]) [address] [facility], [place], [address], 12/04/2023 06:07:16 12/03/19 24 12/04/2023 CBC WITH DIFFE RENTI AL/PL ATELE T eos 2 % not estab. normal Not Available [facility] ([facility]) [address] [facility], [place], [address], 12/04/2023 06:07:16 12/03/19 24 12/04/2023 CBC WITH DIFFE RENTI AL/PL ATELE T basos 1 % not estab. normal Not Available [facility] ([facility]) [address] [facility], [place], [address], 12/04/2023 06:07:16 12/03/19 24 12/04/2023 CBC WITH DIFFE RENTI AL/PL ATELE T immature cells QUALITY MANAGEMENT NURSE Not Available [facility] ([facility]) [address] [facility], [place], [address], 12/04/2023 06:07:16 12/03/19 24 12/04/2023 CBC WITH DIFFE RENTI AL/PL ATELE T neutrophils (absolute) 4.3 x10e3 /uL 1.4-7. 0 normal Not Available [facility] ([facility]) [address] [place], [address], 12/04/2023 06:07:16 12/03/19 24 12/04/2023 CBC WITH DIFFE RENTI AL/PL ATELE T lymphs (absolute) 1.8 x10e3 /uL 0.7-3. 1 normal Not Available [facility] ([facility]) [address] [facility], [place], [address], 12/04/2023 06:07:16 12/03/19 24 12/04/2023 CBC WITH DIFFE RENTI AL/PL ATELE T monocytes(ab solute) 0.7 x10e3 /uL 0.1-0. 9 normal Not Available [facility] ([facility]) [address] [facility], [place], [address], 12/04/2023 06:07:16 12/03/19 24 12/04/2023 CBC WITH DIFFE RENTI AL/PL ATELE T eos (absolute) 0.1 x10e3 /uL 0.0-0. 4 normal Not Available [facility] ([facility]) [address] [facility], [place], [address], 12/04/2023 06:07:16 12/03/19 24 12/04/2023 CBC WITH DIFFE RENTI AL/PL ATELE T baso (absolute) 0.1 x10e3 /uL 0.0-0. 2 normal Not Available [facility] ([facility]) [address] [facility], [place], [address], 12/04/2023 06:07:16 12/03/19 24 12/04/2023 CBC WITH DIFFE RENTI AL/PL ATELE T immature granulocytes 1 % not estab. Not Available [facility] ([facility]) [address] [facility], [place], [address], 12/04/2023 06:07:16 12/03/19 24 12/04/2023 CBC WITH DIFFE RENTI AL/PL ATELE T immature grans (abs) 0.1 x10e3 /uL 0.0-0. 1 Not Available [facility] ([facility]) [address] [facility], [place], [address], 12/04/2023 06:07:16 12/03/19 24 12/04/2023 CBC WITH DIFFE RENTI AL/PL ATELE T NRBC QUALITY MANAGEMENT NURSE Not Available [facility] ([facility]) [address] [facility], [place], [address], 12/04/2023 06:07:16 12/03/19 24 12/04/2023 CBC WITH DIFFE WADE AL/PL ATELE T hematology comments: QUALITY MANAGEMENT NURSE Not Available [facility] ([facility]) [address] [facility], [place], [address], 12/04/2023 06:07:16 12/03/19 24 12/04/2023 COMP. METAB OLIC PANEL (14) glucose 85 mg/dL 70-99 normal Not Available [facility] ([facility]) [address] [facility], [place], [address], 12/04/2023 08:08:19 12/03/19 24 12/04/2023 COMP. METAB OLIC PANEL (14) BUN 10 mg/dL 6-20 normal Not Available [facility] ([facility]) [address] [facility], [place], [address], 12/04/2023 08:08:19 12/03/19 24 12/04/2023 COMP. METAB OLIC PANEL (14) creatinine 0.81 mg/dL 0.76-1 .27 normal Not Available [facility] ([facility]) [address] [facility], [place], [address], 12/04/2023 08:08:19 12/03/19 24 12/04/2023 COMP. METAB OLIC PANEL (14) eGFR 122 mL/mi n/1.7 3 >59 normal Not Available [facility] ([facility]) [address] [facility], [place], [address], 12/04/2023 08:08:19 12/03/19 24 12/04/2023 COMP. METAB OLIC PANEL (14) BUN/creatini ne ratio 12 9-20 normal Not Available [facility] ([facility]) [address] [facility], [place], [address], 12/04/2023 08:08:19 12/03/19 24 12/04/2023 COMP. METAB OLIC PANEL (14) sodium 139 mmol/ L 134-14 4 normal Not Available [facility] ([facility]) [address] [place], [address], 12/04/2023 08:08:19 12/03/19 24 12/04/2023 COMP. METAB OLIC PANEL (14) potassium 4.6 mmol/ L 3.5-5. 2 normal Not Available [facility] ([facility]) [address] [place], [address], 12/04/2023 08:08:19 12/03/19 24 12/04/2023 COMP. METAB OLIC PANEL (14) chloride 102 mmol/ L 96-106 normal Not Available [facility] ([facility]) [address] [place], [address], 12/04/2023 08:08:19 12/03/19 24 12/04/2023 COMP. METAB OLIC PANEL (14) carbon dioxide, total 23 mmol/ L 20-29 normal Not Available [facility] ([facility]) [address] [place], [address], 12/04/2023 08:08:19 12/03/19 24 12/04/2023 COMP. METAB OLIC PANEL (14) calcium 9.7 mg/dL 8.7-10 .2 normal Not Available [facility] ([facility]) [address] [place], [address], 12/04/2023 08:08:19 12/03/19 24 12/04/2023 COMP. METAB OLIC PANEL (14) protein, total 7.3 g/dL 6.0-8. 5 normal Not Available [facility] ([facility]) [address] [place], [address], 12/04/2023 08:08:19 12/03/19 24 12/04/2023 COMP. METAB OLIC PANEL (14) albumin 4.9 g/dL 4.3-5. 2 normal Not Available [facility] ([facility]) [address] [facility] [place], [address], 12/04/2023 08:08:19 12/03/19 24 12/04/2023 COMP. METAB OLIC PANEL (14) globulin, total 2.4 g/dL 1.5-4. 5 Not Available [facility] ([facility]) [address] [facility] [place], [address], 12/04/2023 08:08:19 12/03/19 24 12/04/2023 COMP. METAB OLIC PANEL (14) bilirubin, total 0.5 mg/dL 0.0-1. 2 normal Not Available [facility] ([facility]) [address] [facility] [place], [address], 12/04/2023 08:08:19 12/03/19 24 12/04/2023 COMP. METAB OLIC PANEL (14) alkaline phosphatase 90 IU/L 44-121 normal Not Available [facility] ([facility]) [address] [facility] [place], [address], 12/04/2023 08:08:19 12/03/19 24 12/04/2023 COMP. METAB OLIC PANEL (14) AST (SGOT) 153 IU/L 0-40 above high normal Not Available [facility] ([facility]) [address] [facility] [place], [address], 12/04/2023 08:08:19 12/03/19 24 12/04/2023 COMP. METAB OLIC PANEL (14) ALT (SGPT) 432 IU/L 0-44 above high normal Not Available [facility] ([facility]) [address] [facility] [place], [address], 12/04/2023 08:08:19 12/03/19 24 12/04/2023 TSH TSH 1.370 uIU/m L 0.450- 4.500 normal Not Available [facility] ([facility]) [address] [facility] [place], [address], 12/04/2023 10:06:15 12/03/19 24 12/04/2023 LYME DISEA [...] is recom prashanth d. Not Available [facility] ([facility]) [address] [facility], [place], [address], 12/04/2023 14:06:35 12/03/19 24 elect rhea mora am, stefan beard ECG, 12 leads min No observ ation record ed. [email or web address] Not Available 11/18 19:06:32 Result Notes None recorded. Problems Name Problem SNOMED Code Status Onset Date Resolution Date Notes Provider Name and Address Organization Details Recorded Time Palpitations 98110205 Active 024 Osito Arce, DO [address] , [place], [address] , [place] - [facility] 12:35:19 Problem Notes None recorded. Procedures Surgical History None recorded. Imaging Results Imaging Date Name Status LastModified by Organiz ation Details LastModified Time 12/03/2023 electrocardi ogram, routine ECG, 12 leads min completed [email or web address] Information not available 12/03/2023 19:06:32 Procedure Notes [...] Updated DateTime 4 182.88 cm 28.5 kg/m2 48315.4 g 1 16 /min 74 /min 97 [...] SNOMED-CT Code Diagnosis ICD10 Code Diagnosis Note [id number] [facility] [place] [address] 7 05/22/2018 17:47:21 05/22/2018 19:10:20 [id number] José Luis[address] [place] [address] 7 01/29/2017 12:09:20 01/29/2017 12:58:16 [id number] José Luis[address] [place] [address] 7 03/27/2021 15:00:18 03/27/2021 16:50:20 [id number] José [address] [place] [address] 7 03/25/2022 08:37:00 03/25/2022 09:58:30 [id number] José [address] [place] [address] 7 01/27/2017 08:56:46 01/27/2017 12:38:03 [id number] [address] [place] [address] 7 05/23/2016 12:47:00 05/23/2016 13:17:53 [id number] José [address] [place] [address]362 7 01/25/2017 12:15:44 01/25/2017 14:10:13 [id number] José [address] [place] [address] 7 01/23/2017 11:31:12 01/23/2017 12:02:47 [id number] José [address] [place] [address] 7 01/22/2018 11:42:46 01/22/2018 12:26:53 [id number] [address] [place] [address]92[address] 7 08/01/2020 09:32:46 08/01/2020 10:36:25 [id number] [address] 7 01/24/2018 12:07:47 01/24/2018 13:21:44 [id number] [address] [address] 05/30/2018 16:07:05 05/30/2018 17:05:32 [id number] [address] [address] 7 06/20/2018 14:59:34 06/20/2018 15:54:52 [id number] [place] [address] [facility] [address] [place] [address] 7 12/03/2023 12:16:00 12/03/2023 13:45:40 Palpitations [id number] R00.2 follow up with primary care and cardiologi [facility]. avoid caffeine and stop smoking er if [...] Jones Member ID Guarantor Name 03/25/2022 1 [facility] [id number] Abrahan J [facility] [id number] 1 [facility]/03/2023 1 [facility] [id number] [id number] 1 [facility]han [facility] Notes Date Note Type Note Provider Name [...] Arce DO [address] [place], [address], [place] - [facility] 12/03/2023 19:55:49
--- OUTSIDE RECORDS SUMMARY | 2024-09-02 08:36 | XMS_ITS | Patient Health Record ---
Author Organization [facility] Address [address] [place] [address] Care Team Providers Care Adhesion Tester Name Role Phone Steven RENEE, Cr Primary Care Provider Binu Romero Jr Unavailable Allergies No Known Allergies Results Component Value Reference Range Notes Prothrombin Time INR Reviewed date:01/17/2024 08:05:41 AM Interpretation: Performing Lab:[facility], [address] [place] [address] Notes/Report: Prothrombin Time 12.7 11.1-13.3 SEC INTERNATIONAL [...] Ferritin Reviewed date:01/17/2024 08:05:47 AM Interpretation: Performing Lab:[facility], [address] [place] [address] Notes/Report: Ferritin 574 20-250 ng/mL Ceruloplasmin Reviewed date:01/17/2024 08:05:57 AM Interpretation: Performing Lab:[facility], [address] [place] [address] Notes/Report: Ceruloplasmin 26 REFERENCE RANGE: 14-30 mg/dL THIS TEST PERFORMED AT: [facility] [address] [place] [address] [phone] BROOMCORN THRESHER: NEGRITO RIVERA MD Alpha 1 Anti-trypsin Reviewed date:01/17/2024 08:06:02 AM Interpretation: Performing Lab:[facility], [address] [place] [phone] Notes/Report: Alpha 1 Anti-trypsin 67 (L) REFERENCE RANGE: 83-199 mg/dL THIS TEST PERFORMED AT: [facility] [address] [place] [address] [phone] BROOMCORN THRESHER: NEGRITO RIVERA MD Liver Fibrosis Pnl Reviewed date:01/17/2024 08:05:52 AM Interpretation: Performing Lab:[facility], [address] [place] [address] Notes/Report: Liver Fibrosis Score 0.16 THIS TEST PERFORMED AT: [facility] [address] [place] [address] [phone] BROOMCORN THRESHER: TONNY KUMAR MD, PHD, ELIDA Liver Fibrosis Stage F0 THIS TEST PERFORMED AT: [employer] [facility] [address] [place] [address] [phone] BROOMCORN THRESHER: TONNY KUMAR MD, PHD, ELIDA Liver Fibrosis [...] F4 (severe fibrosis) THIS TEST PERFORMED AT: [address] [address] [phone] BROOMCORN THRESHER: TONNY KUMAR MD, PHD, ELIDA Nec Inflam Act Score 0.47 THIS TEST PERFORMED AT: [address] [address] [phone] BROOMCORN THRESHER: TONNY KUMAR MD, PHD, ELIDA Nec Inflam Act Grade A1-A2 THIS TEST PERFORMED AT: [address] [address] [phone] BROOMCORN THRESHER: TONNY KUMAR MD, PHD, ELIDA Nec Inflam [...] A3 (severe activity) THIS TEST PERFORMED AT: [facility] [address] [phone] BROOMCORN THRESHER: TONNY KUMAR MD, PHD, ELIDA XLZ-Pytnv-2-Macroglobuli n 177 REFERENCE RANGE: 106-279 mg/dL THIS TEST PERFORMED AT: [facility] [address] [address] [phone] BROOMCORN THRESHER: TONNY KUMAR MD, PHD, ELIDA FIB-Haptoglobin 131 REFERENCE RANGE: 43-212 mg/dL THIS TEST PERFORMED AT: [facility] [address] [place] [address] [phone] BROOMCORN THRESHER: TONNY KUMAR MD, PHD, ELIDA FIB-Apolipoprotein A1 110 REFERENCE RANGE: 94-176 mg/dL THIS TEST PERFORMED AT: [facility] [address] [facility] [place] [address] [phone] BROOMCORN THRESHER: TONNY KUMAR MD, PHD, ELIDA FIB-Total Bilirubin 0.3 REFERENCE RANGE: 0.2-1.2 mg/dL THIS TEST PERFORMED AT: [employer] [address] [facility] [place] [address] [phone] BROOMCORN THRESHER: TONNY KUMAR MD, PHD, ELIDA FIB-GGT 69 REFERENCE RANGE: 3-70 U/L THIS TEST PERFORMED AT: [facility] [address] [facility] [place] [address] [phone] BROOMCORN THRESHER: TONNY KUMAR MD, PHD, ELIDA FIB-ALT 90 (H) REFERENCE RANGE: 9-46 U/L THIS TEST PERFORMED AT: [employer] [address] [place] [address] [phone] BROOMCORN THRESHER: TONNY KUMAR MD, PHD, ELIDA Reference ID [id number] Footnote SEE NOTE The reliability of results is dependent on compliance with the preanalytical and analytical conditions recommended by [employer]redictive. The tests have to be deferred for: [...] The performance characteristics have been determined by [employer] [facility]. It has not been cleared or approved by the U.S. Food and Drug Administration. Performance characteristics refer to the analytical performance of the test. [employer] the associated logo, [employer] and all associated [employer] duran are the registered trademarks of [employer]. All third alliance party duran - (R) and (TM) - are the property of their respective owners. (C) [id number] Wire. All rights reserved. THIS TEST PERFORMED AT: [employer] [facility] [address] [place] [address] [phone] BROOMCORN THRESHER: TONNY KUMAR MD, PHD, ELIDA Hemoglobin A1c Reviewed date:01/17/2024 08:04:59 AM Interpretation: Performing Lab:[facility], [address] [place] [address] Notes/Report: Hemoglobin A1c % 4.9 <6.0 % [...] average glucose, using the formula of the K0O-Zbyvebt Average Glucose study (ADAG), Diabetes Care, Vol.31,#8, Dec. 2007 US abdomen complete Reviewed date:12/20/2023 12:55:10 PM Interpretation: Performing Lab: Notes/Report: [address] [address] Ultrasound Report Signed Patient: Abrahan House MR#: [id number] : 1995 Acct:[id number] Age/Sex: 28 / M ADM Date: 12/12/23 Loc: HO.US Attending Dr: Binu Nava MD Ordering Physician: Binu Nava MD Date of Service: 12/12/23 Procedure(s): US abdomen complete Accession Number(s): [id number] cc: Binu Nava MD EXAMINATION: US ABDOMEN [...] in OV> 12/19/23 1340 DD/ 0836 TD/TT: [facility] [place]: [address] [place] [address] Ultrasound Report Signed Patient: Abrahan House MR#: [id number] : 1995 Acct:[id number] Age/Sex: 28 / M ADM Date: 12/12/23 Loc: HO.US Attending Dr: Simon Nava MD Ordering Physician: Binu Nava MD Date of Service: 12/12/23 Procedure(s): US abdomen complete Accession Number(s): [id number] cc: Binu Nava MD EXAMINATION: US ABDOMEN [...] in OV> 12/19/23 1340 DD/ 0836 TD/TT: [place]: Liver Panel Reviewed date:12/17/2023 02:26:57 PM Interpretation: Performing Lab:[facility], [address] [place] [phone] Notes/Report: Bilirubin Total 0.5 0.0-1.0 mg/dL Bilirubin Direct 0.1 0.0-0.5 mg/dL Aspartate Amino Transferase 53 5-37 U/L Alanine Aminotransferase 166 0-40 U/L Total Protein 7.5 6.5-8.0 g/dL Albumin Level 4.8 3.5-5.0 g/dL Alkaline Phosphatase 78 39-117 U/L IRON PROFILE Reviewed date:12/17/2023 02:27:05 PM Interpretation: Performing Lab:[facility], [address] [place] [address] Notes/Report: Iron 142 45-160 mcg/dL Total Iron Binding Capacity 306 228-428 mcg/dL Percent Iron Saturation 46 15-50 % Unsaturated Iron Binding 164 Ferritin Reviewed date:12/17/2023 02:26:40 PM Interpretation: Performing Lab:[facility], [address] [place] [address] Notes/Report: Ferritin 737 20-250 ng/mL YASIR Reflex Titer and Pattern Reviewed date:12/20/2023 01:03:39 PM Interpretation: Performing Lab:[facility], [address] [place] [phone] Notes/Report: Anti Nuclear Antibody Screen NEGATIVE NEGATIVE [...] Negative International Consensus on YASIR Patterns (https://doi.org/10.151 5/lxxn-4893-2987) For additional information, please refer to http://education.[employer].com/faq/FAQ1 77 (This link is being provided for informational/ educational purposes only.) THIS TEST WAS PERFORMED AT: [facility] [address] [place] [address] NEGRITO RIVERA MD Anti Nuclear Antibody Titer TNP Anti Nuclear Antibody Pattern TNP YASIR Titer 2 TNP YASIR Pattern 2 TNP YASIR Titer 3 TNP YASIR Pattern 3 TNP Mitochondrial Antibody Reviewed date:12/26/2023 08:55:31 AM Interpretation: Performing Lab:[facility], [address] [place] [address] Notes/Report: Mitochondrial Antibodies NEGATIVE NEGATIVE THIS TEST WAS PERFORMED AT: [facility] [address] [place] [address] NEGRITO RIVERA MD Mitochondrial Ab Titer TNP Smooth Muscle Antibody Reviewed date:12/26/2023 08:55:37 AM Interpretation: Performing Lab:[facility], [address] [place] [address] Notes/Report: Smooth Muscle Antibody <20 <20 U [...] type 1. THIS TEST WAS PERFORMED AT: [facility]/[address] [address] SEGUNDO SANTILLAN MD,PHD Hepatitis A,B,C Profile Reviewed date:12/17/2023 02:27:24 PM Interpretation: Performing Lab:[facility], [address] [place] [address] Notes/Report: Hepatitis A Antibody IgM Nonreactive Nonreactive [...] Hemochromatosis Reviewed date:02/07/2024 09:55:20 AM Interpretation: Performing Lab:[facility], [address] [facility], [place] [address] Notes/Report: DNA Analysis Hemochromatosis See Below RESULT: [...] results monitored by Niall Johns, Ph.D., FAC, [facility] [...] variants in the HFE gene, C282Y (NM 559546.2: c.845G>A, p.Qtw285Crw) and H63D (NM 017709.2: c.187C>G, p.Rna96Kac), that are commonly associated with HH. These [...] Health care providers, please contact your local [employer] genetic counselor or call [phone] for assistance with the interpretation of these results. This test was developed and its analytical performance characteristics have been determined by [employer] [facility]. It has not been cleared or approved by FDA. This assay has been validated pursuant to the CLIA regulations and is used for clinical purposes. For more information, please refer to http://education.[employer]/faq/hemo chromatosis. (This link is being provided for informational/education al purposes only.) A portion of the testing was performed at [facility]. Reviewed and signed by Laboratory testing supervised and results monitored by Niall Johns, Ph.D., FACMG, [facility], [facility], Signed on 01/31/2024 at 09:47 THIS TEST WAS PERFORMED AT: [employer] [address] [place] [address] TONNY KUMAR MD,PHD,ELIDA Liver Panel Reviewed date:01/17/2024 08:05:37 AM Interpretation: Performing Lab:[address] [address] Notes/Report: Bilirubin Total 0.3 0.0-1.0 mg/dL Bilirubin Direct 0.1 0.0-0.5 mg/dL Aspartate Amino Transferase 41 5-37 U/L Alanine Aminotransferase 104 0-40 U/L Total Protein 7.2 6.5-8.0 g/dL Albumin Level 4.6 3.5-5.0 g/dL Alkaline Phosphatase 79 39-117 U/L IRON PROFILE Reviewed date:01/17/2024 08:05:29 AM Interpretation: Performing Lab:[address] [address] Notes/Report: Iron 106 45-160 mcg/dL Total Iron Binding Capacity 296 228-428 mcg/dL Percent Iron Saturation 36 15-50 % Unsaturated Iron Binding 190 Trypsin Reviewed date:01/17/2024 08:04:37 AM Interpretation: Performing Lab:[facility], [address] [place] [address] Notes/Report: Trypsin TNP TEST CODE 96261 - TRYPSIN HAS BEEN DISCONTINUED NO RECOMMENDED ALTERNATIVE Liver Panel Reviewed date:02/14/2024 10:03:08 AM Interpretation: Performing Lab:[facility], [address] [place] [address] Notes/Report: Bilirubin Total 0.5 0.0-1.0 mg/dL Bilirubin [...] Problem Status W/U Status Risk Notes Problem [id number] Elevated LFTs (R79.89) Active confirmed Problem 353483290 Gastroesophageal reflux disease without esophagitis (K21.9) Active confirmed Problem Iron excess (59542912) Iron excess (E83.19) Active confirmed Problem Elevated liver enzymes level (792742209) Elevated liver function tests (R94.5) Active confirmed Vital Signs Blood pressure diastolic 00 mm Hg 05/29/2024 Height 6 ft 0 in in 05/29/2024 Blood pressure systolic 00 mm Hg 05/29/2024 Weight 190 lbs 05/29/2024 BMI 25.77 kg/m2 05/29/2024 Encounters Encounter Location Date Provider Diagnosis [facility] [address] [facility] [place] [address] 12/06/2023 Binu Nava Jr Elevated LFTs R79.89 and Gastroesophageal reflux disease without esophagitis K21.9 [facility] [address] [place] [facility] [place] [address] 05/29/2024 Binu Nava Jr Iron excess E83.19 and Gastroesophageal reflux disease without esophagitis K21.9 [facility] [address] [place] [address] [address] 12/18/2023 Binu Nava Jr [facility] [address] [place] [address] 01/02/2024 Binu Nava Jr Elevated liver function tests R94.5 and Iron excess E83.19 [facility] [address] [facility] [place] [address] 01/10/2024 Binu Nava Jr [facility] [address] [place] [address] 01/23/2024 Binu Nava Jr Elevated LFTs R79.89 [facility] [address] [place] [address] 02/07/2024 Binu Nava Jr [facility] [address] [place] [address] 02/14/2024 Binu Nava Jr Elevated LFTs R79.89 [facility] [address] [place] [address] 05/26/2024 Binu Nava Jr Assessments Encounter Date [...] Test Test Name Order Date LIVER PROFILE 01/23/2024 LIVER PROFILE 02/14/2024 LIVER PROFILE 05/29/2024 LIVER PROFILE 12/06/2023 LIVER PROFILE 01/02/2024 IRON + IBC (FE) 05/29/2024 IRON + [...] Provider Name:Binu jon Jr, 06/04/2025 01:15:00 PM, [address] [place] [address], [address], [place], [address], Insurance Providers Payer Name Payer Address Payer Phone Subscriber Number Group Number Insured Name Patient Relationship to Insured Coverage Start Date Coverage End Date SAMIRNA [address] Salma pate, [place] [id number] ABRAHAN HOUSE Self - patient is the insured Medical (General) History Medical History History ICD Code Gastroesophageal reflux disease Elevated liver function tests Surgical History Surgery Date(Month/Year) Hospitalization History Reason Date(Month/Year)
--- OUTSIDE RECORDS SUMMARY | 2024-09-02 08:36 | XMS_ITS ---
Author Organization [facility] Address [address] [place] [address] Care Team Providers Care Sailing Officer Name Role Phone Steven RENEE, [place] Primary Care Provider Binu Romero Jr [phone] Allergies No Known Allergies REASON FOR VISIT [...] 05/29/2024 Encounters Encounter Location Date Provider Diagnosis [facility] [address] [place] [address] 05/29/2024 Binu Nava Jr Iron excess E83.19 [...] Provider Name:Binu jon , 06/04/2025 01:15:00 PM, [address] [place] [address], [address], [address], Progress Notes * EVERARDO NYEDOB: [birth year] (29 yo M)Acc No.[id number]:05/29/2024 Progress Notes Patient:?EVERARDO NYE Provider:?Binu Nava MD :1995???Age:29 Y???Sex:Male Abdi e:05/29/2024 Address:[address] [place], [place] [id number] Pcp:Rc Harris MD Subjective: * Chief Complaints: [...] liver function tests. * Family History:?Father: tiago pegueor.?Mother: alive.? No family history of colon cancer. [...] MD Date:?0 05/29/2024 Generated for Chelsey mcclure/Duran/eTransmitting on:?09/02/2024 08:35 AM EDT History and Physical Notes * HPI [...] Category Not es General Examination On exami [facility] today, he appears well. Skin is anicteric. Lungs are clear. Heart shows a regular rate and rhythm. Abdomen soft without focal masses or tenderness. Extremities are without edema.
--- OUTSIDE RECORDS SUMMARY | 2024-09-02 08:36 | XMS_ITS ---
Author Organization [facility] Address [address] [facility] [address] [place] [address] Care Team Providers Care Trackwalker Name Role Phone Steven RENEE, [place] Primary Care Provider Benedict[place] Nava Jr, Binu Balbuena [phone] REASON FOR VISIT labs Encounters Encounter Location Date Provider Diagnosis [facility] [address] [facility] [address] [place] [address] 02/14/2024 Binu Nava Jr Elevated LFTs R79.89 Assessments Encounter Date Diagnosis (ICD Code) Assessment Notes Treatment Notes Treatment Clinical Notes Section Notes 02/14/2024 Elevated LFTs (ICD-10 - R79.89) Plan Of Treatment Pending Test Test Name Order Date LIVER PROFILE 02/14/2024 Next Appt Details Provider Name:Binu jon Jr, 06/04/2025 01:15:00 PM, [address] [place] [address], [address], [place], [address], Progress Notes * EVERARDO NYEDOB: [birth year] (29 yo M)Acc No.[id number]:02/14/2024 Patient:?EVERARDO NYE :1995???Age:29 Y???Sex:Male Address:[address] [place] [address], [address] Subjective: * Chief Complaints: * ???Labs * Medical History:? * Surgical History:? * Hospitalization/Major Diagno stic Procedure:? * Medications:? Objective: Assessment: * Assessment: 1.?Elevated LFTs - R79.89 (P rimary)? Plan: * Treatment: * Procedure Codes:? * true * Date:? Generated for Chelsey mcclure/Duran/Elio on:?09/02/2024 08:36 AM EDT
[2024-09-02 11:01] LABS: MANUAL DIFF FLAG NO
[2024-09-02 11:05] LABS: Basophils Percent Auto 0.9 % (0-2); Eosinophils Absolute Auto 0.1 X10*3/uL (0.0-0.4); Hematocrit 46.2 % (42.0-52.0); Hemoglobin 15.2 g/dl (14.0-18.0); Imm Gran Abs Auto 0.01 X10*3/uL (0.00-0.03); Imm Gran Pct Auto 0.2 % (0.0-0.4); Lymphocytes Absolute Auto 1.7 X10*3/uL (1.2-4.9); Lymphocytes Percent Auto 36.4 % (20-40); Mean Corpuscular HGB Conc 32.9 g/dl (31.0-36.0); Mean Corpuscular Hemoglobin 27.2 pg (27.0-33.0); Mean Corpuscular Volume 82.6 fL (80.0-98.0); Mean Platelet Volume 9.9 fL (9.4-12.4); Monocytes Absolute Auto 0.5 X10*3/uL (0.1-1.2); Monocytes Percent Auto 9.9 % (2-11); Neutrophils Absolute Auto 2.3 x10*3/uL (2.0-8.3); Neutrophils Percent Auto 50.6 % (45-73); Platelet Count 304 X10*3/uL (160-400); Red Blood Count 5.59 X10*6/uL (4.60-5.80); Red Cell Distribution Width 12.5 % (11.0-16.0); White Blood Count 4.5 X10*3/uL (4.8-10.8)
[2024-09-02 11:32] LABS: Appearance Urine Clear; Color Urine Yellow; Glucose Urine UA Negative (Negative); Leukocyte Esterase Urine Negative (Negative); Nitrite Urine Negative (Negative); PH 8.5 (5.0-9.0); Specific Gravity - Urine 1.025 (1.005-1.025); Urine Blood Negative (Negative); Urine Ketones Negative (Negative); Urine Protein Negative (Neg-Trace)
[2024-09-02 11:41] LABS: Alanine Aminotransferase 66 U/L (0-40); Albumin Level 4.6 g/dL (3.5-5.0); Alkaline Phosphatase 59 U/L (39-117); Aspartate Amino Transferase 36 U/L (5-37); Bilirubin Direct 0.1 mg/dL (0.0-0.5); Bilirubin Total 0.4 mg/dL (0.0-1.0); Ferritin 291 ng/mL (20-250); Iron 118 mcg/dL (45-160); Percent Iron Saturation 36 % (15-50); Total Iron Binding Capacity 325 mcg/dL (228-428); Unsaturated Iron Binding 207 ug/dL
[2024-09-02 11:43] LABS: Alanine Aminotransferase 72 U/L (0-40); Albumin Level 4.6 g/dL (3.5-5.0); Alkaline Phosphatase 60 U/L (39-117); Anion Gap 10 (12-20); Aspartate Amino Transferase 36 U/L (5-37); Bilirubin Total 0.4 mg/dL (0.0-1.0); Blood Urea Nitrogen 23 mg/dL (9-16); Calcium 9.6 mg/dL (8.4-10.2); Carbon Dioxide 26 mmol/L (22-29); Chloride 106 mmol/L (96-108); Cholesterol 246 mg/dL (<200); Estimated Glomerular Filt Rate > 60; Ferritin 261 ng/mL (20-250); Glucose Fasting 107 mg/dL (60-99); HDL Cholesterol 36 mg/dL (>40); LDL Cholesterol Calculated 174 mg/dL (<100); Lactate Dehydrogenase 215 U/L (118-273); Potassium 4.2 mmol/L (3.3-5.1); Sodium 138 mmol/L (135-145); TSH reflex Free T4 1.58 uIU/mL (0.32-4.0); Total Protein 7.2 g/dL (6.5-8.0); Triglycerides 183 mg/dL (<150); Vitamin D 25-OH Total 75.2 ng/mL (>30)
[2024-09-06 19:42] LABS: FIB-ALT 44 U/L (9-46); FIB-Alpha-2-Macroglobulin 162 mg/dL (106-279); FIB-Apolipoprotein A1 131 mg/dL (94-176); FIB-GGT 34 U/L (3-90); FIB-Haptoglobin 128 mg/dL (43-212); FIB-Total Bilirubin 0.4 mg/dL (0.2-1.2); Liver Fibrosis Score 0.11; Liver Fibrosis Stage F0; Nec Inflam Act Grade A0-A1; Reference ID 5445011
== END 2024-09-02 08:27 | disposition home or self-care (01) ==
LOC: HO.WFDLDS 08:26
PROVIDERS: Internal Medicine Gastroenterology; Visit Provider Internal Medicine
DX: R30.0 Dysuria (principal); R79.89 Other specified abnormal findings of blood chemistry; E83.110 Hereditary hemochromatosis; E55.9 Vitamin D deficiency, unspecified; E78.00 Pure hypercholesterolemia, unspecified; E83.119 Hemochromatosis, unspecified; E83.52 Hypercalcemia; E83.19 Other disorders of iron metabolism
CPT/HCPCS: 36415; 80053; 80061; 80076; 81003; 81596; 82248; 82306; 82728; 83540; 83615; 84443; 85025

== ENCOUNTER 2025-02-16 14:52 | Outpatient (AMB) | payer BC, SELFPAY ==
[2025-02-16 15:19] VITALS: BP 116/74; PULSE 88; O2SAT 98; BMI 26.0
--- NOTE | 2025-02-16 15:19 | MHC.PC.OV ---
Vital Signs 02/16/25 15:19 Height 6 ft Weight 192 lb BMI 26.0 BP 116/74 Blood Pressure Location Lt brachial Position Sitting Pulse 88 Pulse Source Pulse Oximeter Pulse Oximetry (%) 98 Oxygen Delivery Method Room Air Intake Visit Reasons: physical Cylinder Honer Required: No Accompanied by: Self / Same As Patient Allergies No Known Allergies Allergy (Verified 02/16/25 15:46) Medication List - Last Reconciled 02/16/25 by Rc Harris MD No Known Home Meds Tobacco use date assessed: 02/16/25 Dental Screening Dental Screen Date: 02/16/25 Did you have a dental visit in the last 12 months?: No Did you have a dental problem in the last 6 months where you did not have access to dental care?: No Was dental information given to patient?: Patient has dentist HPI physical HPI Details Patient comes in today for his annual physical examination States that he currently feels okay He denies any headaches or dizziness Denies any chest pains, no shortness of breath No nausea/vomiting, no abdominal pain No change in bowel habits noted He denies any acute urinary symptoms He was not able to get his previously ordered labs done prior to coming in for his appointment today [facility] Medical History (Updated 02/16/25 @ 16:09 by Rc Harris MD) Overweight (BMI 25.0-29.9) Compound heterozygous hemochromatosis type 1 Elevated LFTs Surgical History No pertinent past surgical history Family History Mother No problems noted. Father No problems noted. Social History (Updated 02/16/25 @ 16:06 by Rc Harris MD) Housing: House Alcohol intake: current Alcohol intake frequency: 0-2 drinks per day Patient Tobacco Use Status: Former Tobacco user Tobacco use type: Cigar e-Cigarette/Vaping Use: Never Used service: No Current occupational status: employed Current occupational exposures/hazards: Yes Cognitive needs: No Hearing needs: No Vision needs: No Questionnaire PHQ-9 Over the last 2 weeks, how often have you been bothered by any of the following problems? 1. Little interest or pleasure in doing things: not at all 2. Feeling down, depressed, or hopeless: not at all 3. Trouble falling or staying asleep, or sleeping too much: not at all 4. Feeling tired or having little energy: not at all 5. Poor appetite or overeating: not at all 6. Feeling bad about yourself - or that you are a failure or have let yourself or your family down: not at all 7. Trouble concentrating on things, such as reading the newspaper or watching television: not at all 8. Moving or speaking so slowly that other people could have noticed. Or the opposite - being so fidgety or restless that you have been moving around a lot more than usual: not at all 9. Thoughts that you would be better off or of hurting yourself in some way: not at all Total score: 0 Depression Screening Interpretation: Negative Depression Screening Done: Yes 08772 - PHQ-9 Billing: Yes Source: Developed by Drs. Maximo Sousa, Enedelia Mathias, Prince Gutierrez and colleagues, with an educational vanesa from [employer]. Thrive Questionnaire Date Thrive assessed: 08/13/24 I am a: Patient What is your living situation today?: I have a steady place to live Within the past 12 months, did the food you bought not last and you didn't have the money to get more?: Never true Within the past 12 months, did you worry whether your food would run out before you got money to buy more?: Never true Do you have trouble paying for medicines?: I choose not to answer this question Do you have trouble getting transportation to medical appointments?: No Do you have trouble paying your heating and electricity bill?: No Do you have trouble taking care of your child, family member or friend?: No Do you have trouble with day-to-day activities such as bathing, preparing meals, shopping, managing finances, etc.?: No Are you currently unemployed and looking for a job?: No Are you interested in more education?: No Please select the resources that you would like help with: None Currently or been in a relationship where the following occur: No concerns reported THRIVE Score: 0 AUDIT C Alcohol Use Questionnaire (AUDIT-C) 1. How often do you have a drink containing alcohol?: 2-3 times a week 2. How many drinks containing alcohol do you have on a typical day when you are drinking?: 1 or 2 3. How often do you have six or more drinks on one occasion?: Less than monthly Total Score: 4 Score Reviewed/Action Taken: Yes MARNIE-7 AMB Questionnaire MARNIE-7 Date MARNIE - 7 assessed: 08/13/24 Feeling nervous, anxious, or on edge: 0 = Not at all Not being able to stop or control worryin = Not at all Worrying too much about different things: 0 = Not at all Trouble relaxin = Not at all Being so restless that it is hard to sit still: 0 = Not at all Becoming easily annoyed or irritable: 0 = Not at all Feeling afraid as if something awful might happen: 0 = Not at all Total MARNIE-7 score (0-4 normal; 5-9 mild; 10-14 moderate; 15-21 severe): 0 Source: Developed by Drs. Maximo Sousa, Enedelia Mathias, Prince Gutierrez and colleagues, with an educational vanesa from [employer]. Review of Systems Const Denies chills, Denies fatigue, Denies fever(s), Denies headache(s), Denies malaise and Denies weakness Eyes Denies blurry vision, Denies change in vision, Denies irritation and Denies itchy eyes ENT Denies dysphagia, Denies dizziness, Denies otalgia, Denies headache(s), Denies nasal congestion, Denies neck pain, Denies odynophagia and Denies sore throat Card Denies chest pain, Denies rapid heart rate, Denies irregular heart rhythm, Denies palpitations and Denies dyspnea Resp Denies chest congestion, Denies cough, Denies dyspnea and Denies wheezing GI Denies abdominal pain, Denies bloating, Denies constipation, Denies dysphagia, Denies heartburn, Denies diarrhea, Denies nausea, Denies odynophagia and Denies vomiting Denies hematuria, Denies difficulty urinating, Denies dysuria, Denies urinary frequency and Denies urinary urgency Musc Denies back pain, Denies arthralgias, Denies joint swelling, Denies muscle weakness and Denies neck pain Skin/Breast Denies change in pigmentation, Denies lesions, Denies rash and Denies unusual bruising Neuro Denies dizziness, Denies headache(s), Denies paresthesias and Denies weakness Endo Denies fatigue and Denies palpitations Aller/Immun Denies itchy eyes and Denies wheezing Physical exam (Primary Care) Vital Signs: Last Vital Signs Pulse 88 02/16/25 15:19 BP 116/74 02/16/25 15:19 Pulse Ox 98 02/16/25 15:19 Oxygen Delivery Method Room Air 02/16/25 15:19 BMI result Body Mass Index 26.0 Tobacco/Smoking Status: Tobacco use Status Tobacco use date assessed 02/16/25 02/16/25 15:20 Patient Tobacco Use Status Former Tobacco user 02/16/25 16:06 Tobacco use type Cigar 02/16/25 16:06 e-Cigarette/Vaping Use Never Used 02/16/25 16:06 PHQ-9: PHQ-9 Score PHQ-9: Total score 0 02/16/25 15:55 Depression Screening Interpretation: Negative Thrive Assessment: Date of Thrive Assessment Date Thrive assessed 08/13/24 02/16/25 15:20 Currently or been in a relationship where the following occur: No concerns reported Const General: no acute distress, alert and awake Orientation/consciousness: patient oriented x3 HENMT Head: Yes normocephalic and Yes atraumatic Ears: external ears normal, TM's normal bilaterally and EAC's normal General nose exam: No nasal discharge present Face and sinus: Yes normal facial exam and Yes sinuses nontender Teeth and gingiva: dentition normal Throat: Yes posterior oropharynx normal and Yes tonsils normal (no TP congestion) Eyes Eyelids: Yes eyelids normal Conjunctivae: conjunctivae normal Pupils: Equal, round and reactive pupils present EOM: EOMs intact bilaterally Neck Neck: Yes supple and No lymphadenopathy Thyroid: Thyroid normal Resp Auscultation: clear to auscultation bilaterally, no rales and no wheezes Cardio Rate: regular rate Rhythm: regular rhythm Heart sounds: no murmurs GI Palpation (GI): Soft to palpation, nontender and No hepatosplenomegaly present Auscultation: normal bowel sounds General: Yes no CVA tenderness Back/Spine/Pelvis Back: no CVA tenderness Thoracic/Lumbar Spine: thoracic and lumbar spine normal to inspection Skin Lesions: no lesions Rashes: no rashes Neuro General: patient oriented x3, moves all extremities, no focal motor deficits and CN's II-XI intact bilaterally Cranial nerves: Yes Equal, round and reactive pupils present Cognition (Neuro): normal cognition Gait exam (Neuro): Normal gait present Extrem General: Yes no clubbing, cyanosis or edema Coding Level of Care Code Est Pt Prev Care 18-39y(54598) Diagnoses Annual physical exam Z00.00 Elevated LFTs R79.89 Compound heterozygous hemochromatosis type 1 E83.110 Occasional cigarette smoker Z72.0 Overweight (BMI 25.0-29.9) E66.3 Additional Codes PHQ-9 - 60789 - PHQ-9 Billing: Yes ([id number]) Assessment & Plan Assessment & Plan (1) Annual physical exam: Code(s): Z00.00 - Encounter for general adult medical examination without abnormal findings Category: Medical Plan: Patient is instructed to get his previously ordered labs done IVONE to complete his annual exam (2) Elevated LFTs: Code(s): R79.89 - Other specified abnormal findings of blood chemistry Category: Medical Plan: Patient has been advised that this is likely due to a combination of his weight and alcohol intake Hepatomegaly was seen on his abdominal sonogram done in November 2023, with the liver measuring at 17.2 cm. 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, and his serum ferritin level was elevated at the time Will continue to monitor his LFTs and serum ferritin levels regularly (3) Compound heterozygous hemochromatosis type 1: Code(s): E83.110 - Hereditary hemochromatosis Category: Medical Plan: Patient is a compound heterozygote for type 1 genetic hemochromatosis and is NOT a carrier, which is a common misconception He has been advised that while he has a very low risk of developing clinical hereditary hemochromatosis, he may still experience symptoms of iron overload, such as fatigue, joint pains, skin changes (bronzing), abdominal pain and organ damage, especially involving the liver, heart and pancreas BUT people with this condition tend to accumulate iron more slowly than those with other types of genetic hemochromatosis Other factors like obesity, non-alcoholic fatty liver disease (NAFLD), excess alcohol consumption and end-stage cirrhosis can also be associated with this and can exacerbate his condition Patient has been advised that his first-degree relatives should also be tested and family screening should include parents, siblings, partner and children 18 years and older. All children will be carriers but are only at risk if their other parent is also affected or a carrier Follow up with GI (Dr. Nava) as scheduled (4) Occasional cigarette smoker: Code(s): Z72.0 - Tobacco use Category: Social Hx Plan: Patient is counseled again on complete smoking cessation (5) Overweight (BMI 25.0-29.9): Code(s): E66.3 - Overweight Category: Medical Plan: Reinforced diet/exercise as tolerated/lose weight - states that he has been able to lose some weight since his last visit Plan Follow up in 6 months Orders: Orders Ferritin 02/02/25 R79.89 - Other specified abnormal findings of blood chemistry
--- OUTSIDE RECORDS SUMMARY | 2025-02-16 16:54 | XMS_ITS | Patient Health Record ---
Author Organization [facility] Address [address] [place] [address] Care Team Providers Care Housekeeping Supervisor Name Role Phone Steevn RENEE, [place] Primary Care Provider Binu Romero Jr Unavailable Allergies No Known Allergies Results Component Value Reference Range Notes Complete Blood Count Auto Di ff Reviewed date:09/05/2024 08:20:54 AM Interpretation: Performing Lab:[facility], [address] [place] [phone] Notes/Report: White Blood Count 4.5 4.8-10.8 X10*3/uL Red Blood Count 5.59 4.60-5.80 X10*6/uL Hemoglobin 15.2 14.0-18.0 g/dl Hematocrit 46.2 42.0-52.0 % Mean Corpuscular Volume 82.6 80.0-98.0 fL Mean Corpuscular Hemoglobin 27.2 27.0-33.0 pg Mean Corpuscular HGB Conc 32.9 31.0-36.0 g/dl Red Cell Distribution Width 12.5 11.0-16.0 % Platelet Count 304 160-400 X10*3/uL Mean Platelet Volume 9.9 9.4-12.4 fL Neutrophils Percent Auto 50.6 45-73 % Imm Gran Pct Auto 0.2 0.0-0.4 % Lymphocytes Percent Auto 36.4 20-40 % Monocytes Percent Auto 9.9 2-11 % Eosinophils Percent Auto 2.0 0-4 % Basophils Percent Auto 0.9 0-2 % NRBC Pct Auto 0.0 0.0-0.2 /100WBC Neutrophils Absolute Auto 2.3 2.0-8.3 x10*3/u L Imm Gran Abs Auto 0.01 0.00-0.03 X10*3/uL Lymphocytes Absolute Auto 1.7 1.2-4.9 X10*3/u L Monocytes Absolute Auto 0.5 0.1-1.2 X10*3/uL Eosinophils Absolute Auto 0.1 0.0-0.4 X10*3/u L Basophils Absolute Auto 0.0 0.0-0.2 X10*3/uL NRBC Abs Auto 0.000 0.0-0.012 X10*3/uL Liver Panel Reviewed date:09/05/2024 08:20:35 AM Interpretation: Performing Lab:[facility], [address] [place] [phone] Notes/Report: Bilirubin Total 0.4 0.0-1.0 mg/dL Bilirubin Direct 0.1 0.0-0.5 mg/dL Aspartate Amino Transferase 36 5-37 U/L Alanine Aminotransferase 66 0-40 U/L Total Protein 7.0 6.5-8.0 g/dL Albumin Level 4.6 3.5-5.0 g/dL Alkaline Phosphatase 59 39-117 U/L IRON PROFILE Reviewed date:09/05/2024 08:20:31 AM Interpretation: Performing Lab:[facility], [address] [place] [phone] Notes/Report: Iron 118 45-160 mcg/dL Total Iron Binding Capacity 325 228-428 mcg/d L Percent Iron Saturation 36 15-50 % Unsaturated Iron Binding 207 Ferritin Reviewed date:09/05/2024 08:21:07 AM Interpretation: Performing Lab:[facility], [address] [place] [phone] Notes/Report: Ferritin 291 20-250 ng/mL Liver Fibrosis Pnl Reviewed date:09/08/2024 10:26:42 AM Interpretation: Performing Lab:[facility], [address] [place] [phone] Notes/Report: Liver Fibrosis Score 0.11 Liver Fibrosis Stage F0 Liver Fibrosis Interpretation SEE NOTE no fibrosis Fibro Test Score (f) Metavir [...] f>0.74 and f<=1.00 : F4 (severe fibrosis) Nec Inflam Act Score 0.20 Nec Inflam Act Grade A0-A1 Nec Inflam Act Interpretation SEE NOTE no activity ActiTest Score (a) Metavir Score a>=0 and a<=0.17 : A0 (no activity) a>0.17 and a<=0.29 : A0-A1 (no activity) a>0.29 and a<=0.36 : A1 (minimal activity) a>0.36 and a<=0.52 : A1-A2 (minimal activity) a>0.52 and a<=0.60 : A2 (significant activity) a>0.60 and a<=0.62 : A2-A3 (significant activity) a>0.62 and a<=1.00 : A3 (severe activity) EZL-Bxicp-4-Macroglobulin 162 106-279 mg/dL FIB-Haptoglobin 128 43-212 mg/dL FIB-Apolipoprotein A1 131 94-176 mg/dL FIB-Total Bilirubin 0.4 0.2-1.2 mg/dL FIB-GGT 34 3-90 U/L FIB-ALT 44 9-46 U/L Reference ID [id number] Footnote SEE NOTE The reliability of results is dependent on compliance with the preanalytical and analytical conditions recommended by [employer]. The tests have to be deferred for: [...] The performance characteristics have been determined by [employer] [facility]. It has not been cleared or approved by the U.S. Food and Drug Administration. Performance characteristics refer to the analytical performance of the test. [employer], the associated logo, [employer] and all associated [employer] duran are the registered trademarks of [employer] All third democrat duran - (R) and (TM) - are the property of their respective owners. (C) 6719-9840 [employer]. All rights reserved. THIS TEST WAS PERFORMED AT: [employer] [facility] [address] [place] [address] TONNY KUMAR MD,PHD,ELIDA Reason For Referral No Information Immunizations Vaccine [...] Problem Status W/U Status Risk Notes Problem [id number] Elevated LFTs (R79.89) Active confirmed Problem 793585851 Gastroesophageal reflux disease without esophagitis (K21.9) Active confirmed Problem Iron excess (24155264) Iron excess (E83.19) Active confirmed Problem Elevated liver enzymes level (136258200) Elevated liver function tests (R94.5) Active confirmed Vital Signs Blood pressure diastolic 00 mm Hg 05/29/2024 Height 6 ft 0 in in 05/29/2024 Blood pressure systolic 00 mm Hg 05/29/2024 Weight 190 lbs 05/29/2024 BMI 25.77 kg/m2 05/29/2024 Encounters Encounter Location Date Provider Diagnosis [facility] [address] [place] [address] 05/29/2024 Binu Nava Jr Iron excess E83.19 and Gastroesophageal reflux disease without esophagitis K21.9 [facility] [address] [place] [address] 05/26/2024 Binu Nava Jr [facility] [address] [place] [address] 09/08/2024 Binu Nava Jr Assessments Encounter Date Diagnosis (ICD Code) Assessment Notes Treatment Notes Treatment Clinical Notes Section Notes 05/29/2024 Gastroesophageal reflux disease without esophagitis (ICD-10 [...] visit was 30 minutes. Plan Of Treatment Pending Test Test Name [...] and Pattern 12/06/2023 Next Appt Details Provider Name:Binunena jon Jr, 06/04/2025 01:15:00 PM, [address] [place] [address], [address], [place], [address], Insurance Providers Payer Name Payer Address Payer Phone Subscriber Number Group Number Insured Name Patient Relationship to Insured Coverage Start Date Coverage End Date [employer] [address] Salma pate, [place] [id number] EVERARDO NYE Self - patient is the insured Medical (General) History Medical History History ICD Code Gastroesophageal reflux disease Elevated liver function tests Surgical History Surgery Date(Month/Year) Hospitalization History Reason Date(Month/Year)
--- OUTSIDE RECORDS SUMMARY | 2025-02-16 16:54 | XMS_ITS | Clinical Summary ---
Author Organization [facility] Address [address] [place] [address] Phone Care Team Providers Care Postmaster Relief Name Role Phone Rc Harris MD Primary Care Provider [phone] Allergies No known active allergies Medications No known medications Active Problems No known active problems Immunizations No known immunizations Social History Tobacco Use Types Packs/Day Years Used Date Smoking Tobacco: Some Days Cigars Smokeless Tobacco: Current Chew Tobacco Cessation:Ready to Q uit: Not Asked; Counseling Given: Not Answered Alcohol Use Standard Drinks/Week Comments Yes 0 (1 standard drink = 0.6 oz pur e alcohol) 1 x day during week Education Answer Date Recorded Are you interested in more education? Not on kelly e 09/16/2022 Are you concerned about learning? Not on file 09/16/2022 No 09/16/2022 No 09/16/2022 Digital Access Answer Date Recorded No 10/15/2022 No 10/15/2022 Reliable internet access at home? Not on file 10/15/2022 Device with a working camera? Not on file Sex and Gender Information Value Date Recorded Sex Assigned at Not on file Legal Sex Male 4:15 PM EST Gender Identity Not on file Sexual Orientation Not on file Last Filed Vital Signs Vital Sign Reading Time Taken Comments Blood Pressure 112/74 11/07/2024 3:14 PM EDT Pulse 78 11/07/2024 3:14 PM EDT Temperature 37 C (98.6 F) 11/07/2024 3:14 PM EDT Respiratory Rate 17 11/07/2024 3:14 PM EDT Oxygen Saturation 97% 11/07/2024 3:1 4 PM EDT Inhaled Oxygen Concentration - - Weight 93.9 kg (207 lb) 06/28/2022 4:46 PM EST with steel toe boots on Height 182.9 cm (6') 06/28/2022 4:46 PM EST Body Mass Index 28.07 06/28/2022 4:46 PM EST Plan of Treatment Health Maintenance Due Date Last Done Comments Adult Td,Tdap Booster 1994 DEPRESSION SCREENING 2006 SMOKING Hx and SMOKELESS TOB ACCO SCREENING 2007 HEPATITIS C SCREENING 01/21/2012 HIV ONE-TIME SCREENING (18-6 5 YEARS) 01/21/2012 PNEUMOCOCCAL VACCINES (0-49 years) (1 of 2 - PCV) 2013 INFLUENZA VACCINE (#1) 2024 COVID-19 VACCINE (2023-2 5 season) 2025 HEPATITIS A VACCINES Aged Out No long er eligible based on patient's age to complete this topic HIB VACCINES Aged Out No longer eligi ble based on patient's age to complete this topic MENINGOCOCCAL VACCINES (ACWY) Aged Out No longer eligible based on patient's age to complete this topic MENINGOCOCCAL VACCINES (B) Aged Out N o longer eligible based on patient's age to complete this topic Medical Devices Not on file Insurance [facility] Fronto [facility] [employer] [facility] [employer] [facility] [place] Address[facility] [id number] [place] [address] [facility] [employer] [facility] Care Teams Postmaster Relief Relationship Specialty Start Date End Date Rc Harris MD [address] [place] [address] [place] [address] PCP - General Internal Medicine 11/07/24 Additional Source Comments The information contained in this document represents components of the legal health record. It is not the complete legal health record.[facility]
== END 2025-02-16 16:15 | disposition home or self-care (01) ==
LOC: HO.HMCH 14:53
PROVIDERS: PCP Internal Medicine; Visit Provider Internal Medicine
DX: Z00.00 Encounter for general adult medical examination without abnormal findings (principal); R79.89 Other specified abnormal findings of blood chemistry; E83.110 Hereditary hemochromatosis; Z72.0 Tobacco use; E66.3 Overweight

== ENCOUNTER → 2025-02-16 14:52 | Outpatient (BNVA) | payer BC, SELFPAY | PROVIDERS: PCP Internal Medicine; Visit Provider Internal Medicine | DX: Z00.00 Encounter for general adult medical examination without abnormal findings (principal); R79.89 Other specified abnormal findings of blood chemistry; E83.110 Hereditary hemochromatosis; E66.3 Overweight; Z68.26 Body mass index [BMI] 26.0-26.9, adult; Z87.891 Personal history of nicotine dependence | CPT/HCPCS: 96127 ==

== ENCOUNTER 2025-03-05 09:47 | Outpatient (REF) | payer BC, SELFPAY ==
[2025-03-05 11:07] LABS: MANUAL DIFF FLAG NO
[2025-03-05 11:22] LABS: Hematocrit 45.4 % (42.0-52.0); Hemoglobin 14.6 g/dl (14.0-18.0); Imm Gran Abs Auto 0.02 X10*3/uL (0.00-0.03); Imm Gran Pct Auto 0.4 % (0.0-0.4); Lymphocytes Absolute Auto 1.6 X10*3/uL (1.2-4.9); Mean Corpuscular HGB Conc 32.2 g/dl (31.0-36.0); Mean Corpuscular Hemoglobin 26.5 pg (27.0-33.0); Mean Corpuscular Volume 82.4 fL (80.0-98.0); NRBC Abs Auto 0.000 X10*3/uL (0.0-0.012); NRBC Pct Auto 0.0 /100WBC (0.0-0.2); Platelet Count 307 X10*3/uL (160-400); Red Blood Count 5.51 X10*6/uL (4.60-5.80); White Blood Count 4.5 X10*3/uL (4.8-10.8)
--- OUTSIDE RECORDS SUMMARY | 2025-03-05 11:24 | XMS_ITS | Clinical Summary ---
Author Organization [facility] Address [address] [place] [address] Phone Care Team Providers Care Innovation Manager Name Role Phone Rc Harris MD Primary Care Provider [phone] Allergies No known active allergies Medications No [...] 2013 INFLUENZA VACCINE (#1) 2024 COVID-19 VACCINE ( - 2024-2 6 season) 2025 HEPATITIS A VACCINES Aged Out [...] Devices Not on file Insurance [facility] [employer] [facility] [employer] [facility] Address: [facility] [id number] [place] [address] [facility] [employer] [facility] Care Teams Innovation Manager Relationship Specialty Start Date End Date Rc Harris MD [address] [place] [address] [place] [address] PCP - General Internal Medicine 11/07/24 Additional Source Comments The information contained in this document represents components of the legal health record. It is not the complete legal health record.[facility]
--- OUTSIDE RECORDS SUMMARY | 2025-03-05 11:24 | XMS_ITS | Patient Health Record ---
Author Organization [facility] Address [address] [place] [address] Care Team Providers Care Platform Material Handling Supervisor Name Role Phone Steven RENEE, Elwell Primary Care Provider Binu Romero Jr Unavailable Allergies No Known Allergies Results Component Value Reference Range Notes Complete Blood Count Auto Di ff Reviewed date:09/05/2024 08:20:54 AM Interpretation: Performing Lab:[facility], [address] [place] [phone] Notes/Report: White Blood Count 4.5 4.8-10.8 X10*3/uL [...] Panel Reviewed date:09/05/2024 08:20:35 AM Interpretation: Performing Lab:[facility], [address] [place] [phone] Notes/Report: Bilirubin Total 0.4 0.0-1.0 mg/dL Bilirubin Direct 0.1 0.0-0.5 mg/dL Aspartate Amino Transferase 36 5-37 U/L Alanine Aminotransferase 66 0-40 U/L Total Protein 7.0 6.5-8.0 g/dL Albumin Level 4.6 3.5-5.0 g/dL Alkaline Phosphatase 59 39-117 U/L IRON PROFILE Reviewed date:09/05/2024 08:20:31 AM Interpretation: Performing Lab:[facility], [address] [place] [phone] Notes/Report: Iron 118 45-160 mcg/dL Total Iron Binding Capacity 325 228-428 mcg/d L Percent Iron Saturation 36 15-50 % Unsaturated Iron Binding 207 Ferritin Reviewed date:09/05/2024 08:21:07 AM Interpretation: Performing Lab:[facility], [address] [place] [phone] Notes/Report: Ferritin 291 20-250 ng/mL Liver Fibrosis Pnl Reviewed date:09/08/2024 10:26:42 AM Interpretation: Performing Lab:[facility], [address] [place] [phone] Notes/Report: Liver Fibrosis Score 0.11 Liver Fibrosis [...] a>0.62 and a<=1.00 : A3 (severe activity) EFJ-Buqqg-2-Macroglobulin 162 106-279 mg/dL FIB-Haptoglobin 128 43-212 mg/dL FIB-Apolipoprotein A1 131 94-176 mg/dL FIB-Total Bilirubin 0.4 0.2-1.2 mg/dL FIB-GGT 34 3-90 U/L FIB-ALT 44 9-46 U/L Reference ID [id number] Footnote SEE NOTE The reliability of results [...] The performance characteristics have been determined by [facility]. It has not been cleared or approved by the U.S. Food and Drug Administration. Performance characteristics refer to the analytical performance of the test. [employer], the associated logo, [employer] and all associated [employer] are the registered trademarks of [employer]. All third constitution party duran - (R) and (TM) - are the property of their respective owners. (C) [id number] [employer]. All rights reserved. THIS TEST WAS PERFORMED AT: [employer] [place] [address] [place] [address] TONNY KUMAR MD,PHD,ELIDA Reason For Referral No [...] Problem Status W/U Status Risk Notes Problem Elevated liver enzymes level (264536907) Elevated LFTs (R79.89) Active confirmed Problem Gastroesophageal reflux disease without esophagitis (434123250) Gastroesophageal reflux disease without esophagitis (K21.9) Active confirmed Problem Iron excess (94941711) Iron excess (E83.19) Active confirmed Problem Elevated liver enzymes level (221143701) Elevated liver function tests (R94.5) Active confirmed Vital Signs Blood pressure diastolic 00 mm Hg 05/29/2024 Height 6 ft 0 in in 05/29/2024 Blood pressure systolic 00 mm Hg 05/29/2024 Weight 190 lbs 05/29/2024 BMI 25.77 kg/m2 05/29/2024 Encounters Encounter Location Date Provider Diagnosis [facility] [address] [place] [address] 05/29/2024 Binu Nava Jr Iron excess E83.19 and Gastroesophageal reflux disease without esophagitis K21.9 [facility] [address] [place] [address] 05/26/2024 Binu Nava Jr [facility] [address] [place] [address] 09/08/2024 Binu Nava Jr Assessments Encounter Date [...] Provider Name:Binu jon Jr, 06/04/2025 01:15:00 PM, [address] [place] [address], [address], [place], [address], Insurance Providers Payer Name Payer Address Payer Phone Subscriber Number Group Number Insured Name Patient Relationship to Insured Coverage Start Date Coverage End Date [employer] [address] [place], [place] [id number] EVERARDO NYE Self - patient is the insured Medical (General) History Medical History History ICD Code Gastroesophageal reflux disease Elevated liver function tests Surgical History Surgery Date(Month/Year) Hospitalization History Reason Date(Month/Year)
[2025-03-05 14:52] LABS: Alanine Aminotransferase 67 U/L (0-40); Albumin Level 4.8 g/dL (3.5-5.0); Alkaline Phosphatase 67 U/L (39-117); Anion Gap 9 (12-20); Aspartate Amino Transferase 35 U/L (5-37); Blood Urea Nitrogen 16 mg/dL (9-16); Calcium 9.3 mg/dL (8.4-10.2); Carbon Dioxide 29 mmol/L (22-29); Chloride 106 mmol/L (96-108); Cholesterol 270 mg/dL (<200); Estimated Glomerular Filt Rate > 60; Ferritin 299 ng/mL (20-250); HDL Cholesterol 40 mg/dL (>40); Potassium 4.3 mmol/L (3.3-5.1); Sodium 140 mmol/L (135-145); Total Protein 7.0 g/dL (6.5-8.0); Triglycerides 140 mg/dL (<150)
[2025-03-05 17:52] LABS: Appearance Urine Clear; Glucose Urine UA Negative (Negative); PH 8.0 (5.0-9.0); Specific Gravity - Urine 1.025 (1.005-1.025)
== END 2025-03-05 09:48 | disposition home or self-care (01) ==
LOC: HO.WFDLDS 09:47
PROVIDERS: Visit Provider Internal Medicine
DX: Z00.00 Encounter for general adult medical examination without abnormal findings (principal); R30.0 Dysuria; D64.9 Anemia, unspecified; R79.89 Other specified abnormal findings of blood chemistry; E78.00 Pure hypercholesterolemia, unspecified; E55.9 Vitamin D deficiency, unspecified; R07.89 Other chest pain
CPT/HCPCS: 36415; 80053; 80061; 81003; 82306; 82728; 84443; 85025